=== PATIENT | male | born 1970 | race Caucasian/White ===

== ENCOUNTER → 2018-07-11 15:43 | Outpatient (CLI) | payer BC, SELFPAY | PROVIDERS: Visit Provider Emergency Medicine | DX: L02.31 Cutaneous abscess of buttock (principal) | CPT/HCPCS: 87070; 87077; 87186; 87205 ==

== ENCOUNTER → 2019-08-12 15:07 | Outpatient (CLI) | payer BC, SELFPAY ==
--- NOTE | 2019-08-12 15:11 | US_ITS ---
PROCEDURE: US TESTICULAR CLINICAL INDICATION: Palpable abnormality of the right testicle COMPARISON: No exams were available for comparison FINDINGS: The right testicle measures 3.5 x 2.3 x 2.3 cm. Blood flow is present with homogeneous echogenicity. No intra testicular mass is apparent. There is a complex appearing cystic lesion along the lateral and superior aspect of the right testicle which measures 3.6 by 2.3 cm. This lesion is mostly cystic but does contain some internal septations with some thickening of the septations anteriorly. This may represent a complex epididymal cyst/spermatocele Left testicle is 3.2 x 2.5 x 1.8 cm and has an unremarkable appearance. IMPRESSION: 3.5 x 2.3 x 2.3 cm complex cystic lesion in the right hemiscrotum which may represent a complex epididymal cyst or spermatocele. Dictated by: Miguel Gaytan MD 08/13/2019 10:10 Electronically signed by Miguel Gaytan MD in [place] 08/13/2019 10:10
== END ==
PROVIDERS: PCP Emergency Medicine; Visit Provider Emergency Medicine
DX: N50.89 Other specified disorders of the male genital organs (principal)
CPT/HCPCS: 76870

== ENCOUNTER 2020-01-11 20:47 | Emergency (ER) | payer BC, SELFPAY ==
[2020-01-11 20:57] VITALS: BP 141/83; PULSE 92; RESP 18; TEMP 36.6; O2SAT 99; BMI 32.6
--- NOTE | 2020-01-11 21:10 | HMH.EDUTC ---
[facility] [place] Disposition Clinical Impression: Encounter for laboratory testing for COVID-19 virus Disposition: Home, Self-Care Condition on Discharge: Good Instructions: Preventing the Spread of Coronavirus Discharge Instructions Additional Instructions: Go home and self Quarantine as directed on handout due to known exposure and member of household positive for COVID19 *You may call back to [facility] on Monday to see if your COVID19 test is back and results *Follow up with Family Doctor if no improvement or any worsening of symptoms, make sure that you call office before you go and let them know that you have been tested and awaiting results *Return if needed Straight to ER if any life threatening symptoms No work Do not be out in public you must stay home and away from the public Further instructions per handout that you was given in [facility] Referrals: Armando Polanco MD [Primary Care Provider] - As needed Forms: Work/School Release Time of Disposition: 21:19 Medical Decision Making - Dex Inquiry Pt receiving controlled substance: No Dex was queried for this patient: No Vital Signs: 01/11/20 20:57 Temperature 97.8 F Temperature Source Oral Pulse Rate [Right Brachial] 92 H Respiratory Rate 18 Blood Pressure [Right Arm] 141/83 H Blood Pressure Mean [Right Arm] 102 Blood Pressure Source [Right Arm] Automatic Cuff Blood Pressure Position [Right Arm] Sitting 02 Sat by Pulse Oximetry 99 Oxygen Delivery Method Room Air Orders (Tests/Meds): ORDERS Category Date Time Status SARS-CoV-2, [place] ([place]) Stat Lab 01/11/20 20:51 Ordered [facility] [place] HPI - General Stated complaint: WANTS covid tESTING Time Seen by Provider: 01/11/20 21:10 Mode of Arrival: Ambulatory Source of Information: Patient Limitations: No Limitations Description of Symptoms (Recalled from Triage Doc. by RN): PATIENT REQUESTING COVID-19 TEST. HE LIVES WITH HIS [id number] WHO RECENTLY TESTED POSITIVE. PATIENT DENIES HAVING ANY SYMPTOMS HEENT Symptoms (Recalled from RN notes): No Resp Symptoms (Recalled from RN notes): No Skin Symptoms (Recalled from RN notes): No MS Symptoms (Recalled from RN notes): No Functional Status (Recalled from RN notes): WNL - History of Present Illness Provider Complaint: Patient states that he lives with his brother in law who recently returned from [place] and his boss was feeling bad and tested for COVID19 and was positive States that brother in law came and got tested but wasnt having any symptoms and found out today that he tested positive for COVID19 and he lives in the house with the positive patient State that he also hasnt been having any symptoms but 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 - Related Data Home Medications Medication Instructions Recorded Confirmed No Known Home Medications 01/11/20 01/11/20 Allergies Allergy/AdvReac Type Severity Reaction Status Date / Time No Known Allergies Allergy Verified 08/12/19 14:20 - Worker's Comp Is this a Worker's Comp case?: No [facility] History - Hepatitis A Screen Drug use history?: No High risk sexual behaviors?: No History of sexually transmitted infection?: No Currently employed?: No Childcare worker?: No Do you have indoor plumbing?: Yes Do you have electricity?: Yes Attestation statement:: This patient has been screened for Hepatitis A risk factors. I have reviewed the patient's past medical history: Yes Medical History: Denies:: Diabetes Mellitus Type 2 Other Medical History: Reports: Hypothyroidism, Other Laterality Cases: Bilateral: Tonsillectomy Other Surgeries: Yes: EGD Amputation: No Fractures: No Comment: sutured stomach to diaphragm - Social History Smoking Status: Current every day smoker Tobacco Type: cigarettes # Packs/Day (cigarettes): 1 Alcohol Intake: never Substance Use Type: denies use Occupational Status: other Family Hx:: Diabetes, Coronary Artery Disease, Hyper
[2020-01-11 21:25] VITALS: BP 141/83; PULSE 92; RESP 18; TEMP 36.6; O2SAT 99
[2020-01-14 09:40] LABS: Covid-19 Nasal PCR Sendout UK NOT DETECTED
== END 2020-01-11 21:26 | disposition home or self-care (01) ==
PROVIDERS: Emergency Provider Nurse Practitioner; PCP Emergency Medicine
DX: Z20.828 Contact with and (suspected) exposure to other viral communicable diseases (principal); F17.210 Nicotine dependence, cigarettes, uncomplicated
CPT/HCPCS: 99201; U0003

== ENCOUNTER 2020-01-17 18:19 | Emergency (ER) | payer BC, SELFPAY ==
[2020-01-17 18:31] VITALS: BP 140/95; PULSE 120; RESP 20; TEMP 36.8; O2SAT 99; BMI 32.0
--- NOTE | 2020-01-17 18:45 | HMH.EDUTC ---
[facility] [place] Disposition Clinical Impression: Shingles Qualifiers: Herpes zoster complications: without complications Qualified Code(s): B02.9 - Zoster without complications Disposition: Home, Self-Care Condition on Discharge: Good Instructions: Shingles, DI for Shingles Additional Instructions: Take the medication as prescribed. Follow up with your regular doctor. (Dr. Polanco) GO TO THE ER FOR ANY WORSENING SYMPTOMS OR CONCERNS Prescriptions: Acyclovir [Acyclovir 800mg tab] 800 mg PO 5XDAY 7 Days #35 tab Transmission Status: Received by [id number] methylPREDNISolone [Medrol] 4 mg PO DIRECTED 6 Days #21 tab.ds.pk Transmission Status: Received by [id number] Referrals: Armando Polanco MD [Primary Care Provider] - Forms: Work/School Release Time of Disposition: 18:58 Medical Decision Making - Medical Records Medical records reviewed: No: I reviewed the patient's medical records. - Dex Inquiry Pt receiving controlled substance: No Vital Signs: 01/17/20 18:31 01/17/20 19:08 Temperature 98.2 F 98.2 F Temperature Source Oral Pulse Rate 120 H Pulse Rate [Right Brachial] 120 H Respiratory Rate 20 20 Blood Pressure 140/95 H Blood Pressure [Right Arm] 140/95 H Blood Pressure Mean [Right Arm] 110 Blood Pressure Source [Right Arm] Automatic Cuff Blood Pressure Position [Right Arm] Sitting 02 Sat by Pulse Oximetry 99 Oxygen Delivery Method Room Air Orders (Tests/Meds): ED MEDICATIONS Discontinued Medications Generic Name Dose Route Start Last Admin Trade Name Freq PRN Reason Stop Dose Admin Ibuprofen 800 mg 01/17/20 18:58 01/17/20 19:05 Motrin 400mg Tablet PO 01/17/20 18:59 800 mg ONCE ONE Administration Methylprednisolone Sodium Succinate 125 mg 01/17/20 18:52 01/17/20 19:06 Solu-Medrol 125mg/2ml Vial IM 01/17/20 18:53 125 mg ONCE ONE Administration [facility] [place] HPI - General Stated complaint: Rash on back Time Seen by Provider: 01/17/20 18:40 Mode of Arrival: Ambulatory Source of Information: Patient Limitations: No Limitations Description of Symptoms (Recalled from Triage Doc. by RN): PATIENT C/O RASH TO RIGHT SIDE OF BACK AND RIGHT SIDE OF ABDOMEN SINCE APPROX MONDAY OR MONDAY. HE STATES THE RASH DOES NOT ITCH, BUT IS SORE. ALSO C/O PAIN UNDER RIGHT ARM/AXILLA HEENT Symptoms (Recalled from RN notes): No Resp Symptoms (Recalled from RN notes): No Skin Symptoms (Recalled from RN notes): Yes MS Symptoms (Recalled from RN notes): No Functional Status (Recalled from RN notes): WNL - History of Present Illness Provider Complaint: He states that he first noticed the rash starting to break out 3 days ago. Now the rash is very painful. - Related Data Previous Rx's Medication Instructions Recorded Acyclovir [Acyclovir 800mg tab] 800 mg PO 5XDAY 7 Days #35 tab 01/17/20 methylPREDNISolone [Medrol] 4 mg PO DIRECTED 6 Days #21 01/17/20 tab.ds.pk Allergies Allergy/AdvReac Type Severity Reaction Status Date / Time No Known Allergies Allergy Verified 08/12/19 14:20 - Worker's Comp Is this a Worker's Comp case?: No [facility] History - Hepatitis A Screen Drug use history?: No High risk sexual behaviors?: No History of sexually transmitted infection?: No Currently employed?: No Childcare worker?: No Do you have indoor plumbing?: Yes Do you have electricity?: Yes Attestation statement:: This patient has been screened for Hepatitis A risk factors. I have reviewed the patient's past medical history: Yes Medical History: Denies:: Diabetes Mellitus Type 2 Other Medical History: Reports: Hypothyroidism, Other Laterality Cases: Bilateral: Tonsillectomy Other Surgeries: Yes: EGD Amputation: No Fractures: No Comment: sutured stomach to diaphragm - Social History Smoking Status: Current every day smoker Tobacco Type: cigarettes # Packs/Day (cigarettes): 1 Alcohol Intake: never Substance Use Type: denies use
[2020-01-17 19:08] VITALS: BP 140/95; PULSE 120; RESP 20; TEMP 36.8; O2SAT 99
== END 2020-01-17 19:14 | disposition home or self-care (01) ==
PROVIDERS: Emergency Provider Nurse Practitioner Family; PCP Emergency Medicine
DX: B02.9 Zoster without complications (principal); E03.9 Hypothyroidism, unspecified; Z90.09 Acquired absence of other part of head and neck
CPT/HCPCS: 96372; 99201

== ENCOUNTER 2020-03-17 13:04 | Emergency (ER) | payer BC, SELFPAY ==
[2020-03-17 13:17] VITALS: BP 127/84; PULSE 105; RESP 19; TEMP 36.6; O2SAT 98; BMI 31.9
--- NOTE | 2020-03-17 13:39 | CA_ITS ---
APPROVED REPORT Right Lower Extremity Venous Study for DVT. Parallel Computing Software Engineer: LONDON ClayT Indications Lower Extremity Pain: Right Pain rt thigh x several days, nki Vein Imaging CFV (R): compressive, spontaneous, phasic, augmentation FEM (R): compressive, spontaneous, phasic, augmentation POP (R): compressive, spontaneous, phasic, augmentation PTV (R): Compressible GSV (R): Non-Compressible Peroneals (R):Compressible GAS (R): Compressible Findings Study suggests no evidence of DVT of the right lower extremity. A thrombus is seen in the GSV extending from the mid thigh to the mid calf. Conclusion Study suggests no evidence of DVT of the right lower extremity. A thrombus is seen in the GSV extending from the mid thigh to the mid calf Critical Notification Physician Notified Date: 03/17/2020 Time: 14:16 Physician Name: Helen Garcia Electronically signed by : Miguel Gaytan MD 03/17/2020 16:22:07
--- NOTE | 2020-03-17 13:41 | HMH.EDUTC ---
[facility] [place] Disposition Clinical Impression: Thrombus Disposition: Home, Self-Care Condition on Discharge: Good Instructions: Varicose Veins, DI for Varicose Veins, DI on Treatment of Varicose Veins of the Leg, Rivaroxaban Additional Instructions: Take medication as prescribed *Repeat Venous Doppler tomorrow 03/18/20 at 8:00am then Follow up in Cardiology Clinic here at [facility] 9:30am 03/18/20 Further treatment per Cardiology Clinic and your Family Doctor Make sure that if you start having any shortness of breath, chest pain, uncontrolled bleeding etc go straight to the ER immediately Take Xarelto as prescribed 15mg twice daily for 3 weeks Prescriptions: Rivaroxaban [Xarelto 15mg tablet] 15 mg PO BID 21 Days #42 tab Transmission Status: Received by [id number] Referrals: Armando Polanco MD [Primary Care Provider] - As needed Daysi Degroot APRN [Nurse Practitioner] - Sharon Escalera APRN [Nurse Practitioner] - 03/18/20 9:30 am Forms: Work/School Release Time of Disposition: 15:27 Medical Decision Making - Dex Inquiry Pt receiving controlled substance: No Dex was queried for this patient: No Vital Signs: 03/17/20 13:17 03/17/20 15:29 Temperature 97.8 F 97.8 F Temperature Source Oral Pulse Rate 105 H Pulse Rate [Right Brachial] 105 H Respiratory Rate 19 19 Blood Pressure 127/84 Blood Pressure [Right Arm] 127/84 Blood Pressure Mean [Right Arm] 98 Blood Pressure Source [Right Arm] Automatic Cuff Blood Pressure Position [Right Arm] Sitting 02 Sat by Pulse Oximetry 98 Oxygen Delivery Method Room Air Orders (Tests/Meds): ED MEDICATIONS Discontinued Medications Generic Name Dose Route Start Last Admin Trade Name Freq PRN Reason Stop Dose Admin Rivaroxaban 15 mg 03/17/20 14:46 03/17/20 14:56 Xarelto 15mg Tablet PO 03/17/20 14:47 15 mg ONCE ONE Administration - US Data US Images: Lower Extremity ED US Reviewed: Yes: I have reviewed the patient's US results Findings Narrative: Study suggests no evidence of DVT of the right lower extremity. A thrombus is seen in the GSV extending from the mid thigh to the mid calf - Physician Consults Physician Consulted: Loi Larson Time: 14:20 Reason -: Cardiology Eval/Care Comment/Response: Spoke with Loi Larson from the Cardiology Clinic and discussed findings on Venous Doppler of thrombus in GSV extending from mid thigh to mid calf area and Loi NICHOLSON spoke with Dr Cornell and discussed with patient about being admitted or could be sent home on outpatient tx of Xarelto. Discussed with patient and at this time patient not wanting to be admitted and wanting to do outpatient tx, recommended starting patient on Xarelto 15mg BID for 3 weeks, schedule repeat Venous Doppler in the am on 03/18/20 then follow up immediately in the Cardiology Clinic after doppler and give 1st dose of Xarelto in the office and educate patient that if he has any complications, chest pain or SOA go straight to ER and Patient agreed and verbalized understanding of instructions [facility] [place] HPI - General Stated complaint: Vein in right leg pain Time Seen by Provider: 03/17/20 13:41 Mode of Arrival: Ambulatory Limitations: No Limitations Description of Symptoms (Recalled from Triage Doc. by RN): PATIENT REPORTS HE WAS MOVING LAST MONDAY WHEN HE HIT HIS RIGHT LEG AND STATES IT FELT LIKE A VEIN POPPED IN HIS THIGH HEENT Symptoms (Recalled from RN notes): No Resp Symptoms (Recalled from RN notes): No Skin Symptoms (Recalled from RN notes): No MS Symptoms (Recalled from RN notes): Yes Functional Status (Recalled from RN notes): WNL - History of Present Illness Provider Complaint: Patient states that he has a history of varicose veins State that he did some moving last week and did alot heavy lifting and walking and bumped his right leg several times on the trailor States that Monday he noticed that he had a lumpy area in a vein in his right upper leg that went from h
[2020-03-17 15:29] VITALS: BP 127/84; PULSE 105; RESP 19; TEMP 36.6; O2SAT 98
== END 2020-03-17 15:38 | disposition home or self-care (01) ==
LOC: UTC 13:09
PROVIDERS: Emergency Provider Nurse Practitioner; PCP Emergency Medicine
DX: I82.4Y1 Acute embolism and thrombosis of unspecified deep veins of right proximal lower extremity (principal); E03.9 Hypothyroidism, unspecified; F17.210 Nicotine dependence, cigarettes, uncomplicated
CPT/HCPCS: 93971; 99201

== ENCOUNTER → 2020-03-18 08:00 | Outpatient (CLI) | payer BC, SELFPAY ==
--- NOTE | 2020-03-18 08:03 | CA_ITS ---
APPROVED REPORT Right Lower Extremity Venous Study for DVT. Promotions Intern: LONDON ClayT Indications Lower Extremity Pain: Right f/t svt of the gsv Medications PT STARTED XARELTO YESTERDAY Vein Imaging CFV (R): compressive, spontaneous, phasic, augmentation FEM (R): compressive, spontaneous, phasic, augmentation POP (R): compressive, spontaneous, phasic, augmentation PTV (R): Compressible GSV (R): Non-Compressible, Thrombus Peroneals (R):Compressible GAS (R): Compressible Findings Study suggests no evidence of DVT of the right lower extremity. Thrombus seen in the right GSV of the thigh extending into the proximal calf. Conclusion Study suggests no evidence of DVT of the right lower extremity. Thrombus seen in the right GSV of the thigh extending into the proximal calf. Electronically signed by : Miguel Gaytan MD 03/19/2020 17:33:13
== END ==
PROVIDERS: PCP Emergency Medicine; Visit Provider Nurse Practitioner
DX: I82.90 Acute embolism and thrombosis of unspecified vein (principal); I82.409 Acute embolism and thrombosis of unspecified deep veins of unspecified lower extremity
CPT/HCPCS: 93971

== ENCOUNTER → 2020-03-18 11:56 | Outpatient (CLI) | payer BC, SELFPAY ==
[2020-03-18 12:45] LABS: Basophils % 0.4 % (0.1-2.0); Eosinophils # 0.2 K/mm3 (0.0-0.4); Eosinophils % 2.1 % (0.1-12.0); Hemoglobin 16.2 g/dL (14.1-18.0); Lymphocytes # 1.9 K/mm3 (0.7-4.5); Lymphocytes % 23.6 % (10-50); Mean Corpuscular HGB Conc 32.4 g/dL (31.8-35.4); Mean Corpuscular Hemoglobin 28.5 pg (27.0-31.2); Mean Corpuscular Volume 87.8 fl (80-94); Mean Platelet Volume 8.7 fl (7.4-10.4); Monocytes # 0.3 K/mm3 (0.1-1.0); Monocytes % 3.8 % (1.7-9.3); Neutrophils # 5.7 K/mm3 (1.8-7.8); Neutrophils % 70.1 % (37.0-80.0); Platelet Count 207 K/mm3 (142-424); Red Cell Distribution Width 14.4 % (11.5-17.5); White Blood Count 8.2 K/mm3 (4.8-10.8)
[2020-03-18 13:21] LABS: Alanine Aminotransferase 42 U/L (12-78); Albumin Level 3.7 g/dl (3.5-5.0); Alkaline Phosphatase 90 U/L (38-126); Anion Gap 12.6 mEq/L (5-15); Aspartate Amino Transferase 30 U/L (17-59); Bilirubin,Direct 0.2 mg/dl (0.0-0.4); Bilirubin,Indirect 0.2 mg/dL (0.0-0.9); Bilirubin,Total 0.4 mg/dl (0.2-1.3); Bilirubin,Unconjugated 0.2 mg/dL (0.0-1.1); Blood Urea Nitrogen 19 mg/dl (9-20); Calcium 9.5 mg/dl (8.4-10.2); Carbon Dioxide 32 mmol/L (22.0-30.0); Chloride 99 mmol/L (98-107); Chol/HDL Ratio 5.5 (1-3.5); Cholesterol 224 mg/dl (140-200); Estimated Glomerular Filt Rate 64 ml/min (>60); GFR (African American) 78 ML/MIN (>60); Glucose 239 mg/dl (74-100); HDL Cholesterol 41 mg/dl (40-60); Potassium 4.6 mmoL/L (3.5-5.1); Sodium 139 mmol/L (136-145); Total Protein,Serum 6.5 g/dl (6.3-8.2); Triglycerides 253 mg/dl (30-150); VLDL Cholesterol 51 mg/dL (0-40)
[2020-03-18 13:34] LABS: Direct LDL Cholesterol 145.46 mg/dL (100-129)
[2020-03-18 13:53] LABS: Thyroid Stimulating Hormone 5.93 uIU/mL (0.465-4.68)
== END ==
PROVIDERS: Visit Provider Urology
DX: I82.409 Acute embolism and thrombosis of unspecified deep veins of unspecified lower extremity (principal); I82.811 Embolism and thrombosis of superficial veins of right lower extremity; J98.6 Disorders of diaphragm; R06.00 Dyspnea, unspecified; R07.9 Chest pain, unspecified; R42 Dizziness and giddiness
CPT/HCPCS: 36415; 80048; 80061; 80076; 84439; 84443; 85025

== ENCOUNTER → 2020-03-24 08:29 | Outpatient (CLI) | payer BC, SELFPAY ==
--- NOTE | 2020-03-24 08:29 | CA_ITS ---
APPROVED REPORT Bilateral Lower Extremity Venous Study for DVT. Excelsior Machine Operator: CECILIA Indications Lower Extremity Pain: Right thrombus greater saphenous vein right leg follow up Vein Imaging CFV (R): compressive, spontaneous, phasic, augmentation SFJ (R): compressive, spontaneous, phasic, augmentation FEM (R): compressive, spontaneous, phasic, augmentation POP (R): compressive, spontaneous, phasic, augmentation DFV (R): Compressible PTV (R): compressive, spontaneous, phasic, augmentation GSV (R): Non-Compressible Peroneals (R):compressive, spontaneous, phasic, augmentation GAS (R): Compressible Findings SVT RIGHT GREATER SAPHANEOUS VEIN FOLLOW UP STUDY NO EVIDENCE OF DVT RIGHT LOWER EXTRMITY Conclusion SVT RIGHT GREATER SAPHANEOUS VEIN FOLLOW UP STUDY NO EVIDENCE OF DVT RIGHT LOWER EXTRMITY Electronically signed by : Miguel Gaytan MD 03/24/2020 15:53:56
--- NOTE | 2020-03-24 08:29 | CA_ITS ---
APPROVED REPORT EXAM: Comprehensive 2D, Doppler, and color-flow Echocardiogram Education Technician: Ceci Nicolas CRT Ht: 5 ft 7 in Wt: 210lbs BSA: 2.07 BP: 116/86 mmHg Indications: SOA,H/O SVT,SMOKER,COBB,OBESITY, H/O PARALYSIS OF DIAPHRAGM TDS SECONDARY TO ABOVE 2D Dimensions LVOT 2.23 cm (M/F) 1.5-2.5 M-Mode Dimensions RVDd 2.46 cm (0.9-2.6) LVDd 3.89 cm (3.5-5.7) LVDs 2.81 cm (3.5-5.7) IVSd 1.90 cm (0.6-1.1) PWd 1.05 cm (0.6-1.1) EF (Teich) 54.50% FS 27.80% EDV (Teich) 65.50 mL ESV (Teich) 29.80 mL LV Diastology E/A Ratio 0.48 Mitral Valve MV A Velocity 98.00 (40-130 cm/s) Left Ventricle Technically difficult study because of the patient fact in poor acoustic windows. Left atrium is mildly enlarged, left ventricle is normal size, mild concentric left ventricular hypertrophy, visually estimated ejection fraction 50%, there appears to be mild hypokinesis involving the distal septum and apical wall. Doppler evidence of impaired LV relaxation seen, repeat study with Definity contrast is recommended. Tissue Doppler is inadequate Right Ventricle Right atrium and right ventricle are normal size and contractility. Aortic Valve Aortic valve is thickened and calcified leaflet chordae display good mobility, there is no aortic stenosis or aortic insufficiency. Mitral Valve Mitral valve is minimally thickened, there is mild mitral regurgitation. Tricuspid Valve Tricuspid valve is grossly normal, there is mild tricuspid regurgitation, tricuspid regurgitation jet velocity is inadequate for calculation of the right ventricular systolic pressure. Pulmonic Valve Pulmonic valve is poorly visualized. Great Vessels Aortic root is normal size. Pericardium No significant pericardial effusion noted. Conclusion 1. Technically difficult study because of the patient factors and poor acoustic windows, repeat study with Definity contrast is recommended. 2. Mildly enlarged left atrium, normal left ventricular size, mild concentric left ventricular hypertrophy, visually estimated ejection fraction 50% with possible segmental wall motion abnormality described above, Doppler evidence of impaired LV relaxation seen. Tissue Doppler is suboptimal. 3. Mild mitral and tricuspid regurgitation. 4. No significant pericardial effusion noted. Electronically signed by : Sy Crenshaw, 03/24/2020 17:56:14
== END ==
PROVIDERS: PCP Emergency Medicine; Visit Provider Urology
DX: R07.9 Chest pain, unspecified (principal); R42 Dizziness and giddiness; R06.00 Dyspnea, unspecified; I82.811 Embolism and thrombosis of superficial veins of right lower extremity; J98.6 Disorders of diaphragm
CPT/HCPCS: 93306; 93971

== ENCOUNTER → 2020-04-03 06:27 | Outpatient (CLI) | payer BC, SELFPAY ==
--- NOTE | 2020-04-03 06:31 | NM_ITS ---
APPROVED REPORT Exam: Nuclear Stress Test Indication: short of breath..fatigue Patient Location: Outpatient Stress Tech: Shelly Harpernkson NM Tech:TEE Pillai RT(R)(N) Ht: 5 ft 8 in Wt: 210 lbs HR: 91 bpm BP: 117/83 mmHg BSA: 2.09 m2 BMI: 31.9 History: short of breath..fatigue Procedure: Patient received a 0.4 mg of intravenous Lexiscan, resting heart rate 91 bpm, resting blood pressure 117/83 mmHg, with Lexiscan maximum heart rate achived was 108 bpm which is Less than 85 % of the maximum predicted heart rate and blood pressure was 116/83 mmHg. With Lexiscan, patient denied any complaint of chest pain. Electrocardiogram Resting electrocardiogram showed sinus rhythm, with Lexiscan there is less than 1.[address] segment depression noted from the baseline EKG. The EKG portion of the Lexiscan is nondiagnostic. Cardiac Stress and Resting SPECT Images: Cardiac Stress and Resting SPECT images were obtained using technetium 99m Myoview 32.2 mCi stress and 10.89 mCi at rest. Gated SPECT for the analysis of segmental wall motion and calculation of the ejection fraction also done. Cardiac stress and resting SPECT images show decreased tracer activity in the posterolateral wall which improves on the resting images raising the concerns for presence of reversible ischemia. Computer derived ejection fraction is 63% with no regional wall motion abnormality, right ventricle is normal size and contractility. Conclusion: 1. The EKG portion of the Lexiscan Myoview is nondiagnostic. 2. Scintigraphic evidence of reversible ischemia involving the posterolateral wall, computer derived ejection fraction is 63% with no regional wall motion abnormality, right ventricle is normal size and contractility. 3. Abnormal Lexiscan Myoview study. Electronically signed by : Sy Crenshaw, 04/03/2020 11:25:47
--- NOTE | 2020-04-03 06:31 | CA_ITS ---
APPROVED REPORT Exam: Pharmacologic Technologist: Anum Samaniego, Ht: 5 ft 7 in Wt: 214 lbs BSA: 2.08 m2 HR: 91 bpm BP: 119/74 mmHg Rhythm: SINUS RHYTHM (ABNORMAL EKG) Medical History Medical History: HTN, Hyperlipidemia Medications: Levothyroxine,,,,, Metoprolol,,,,, RoSUVASTATIN,,,,, SilDENAFIL,,,,, RIvaROXABAN,,,,, Cardiac Risk Factors: HTN, Hyperlipidemia, FHX of CAD Stress Test Details Test: LEXISCAN HR Resting HR: 94 bpm Max Heart Rate (APMHR): 170 bpm Max HR Achieved: 116 bpm Target HR (85% APMHR): 144 bpm % of APMHR: 68 Recovery HR: 108 bpm BP Resting BP: 117.0/83.0 mmHg Max BP: 136.0/79.0 mmHg Recovery BP: 116.0/83.0 mmHg ECG Resting ECG: SINUS RHYTHM(ABNORMAL ECG) Clinical Exercise duration: 04:00 min Highest Stage Achieved: Exercise capacity: 1.0 METs Stress ECG Conclusion LEXISCAN MYOVIEW COMPLETED. PATIENT C/O SOA DURING PEAK INFUSION. RESOLVED IN RECOVERY. OCCASIONAL PVC. LESS THAN 1.[address] DEPRESSION. IMAGES TO FOLLOW Test Summary RECOVERY 04:00 . . 106 . 125/ 89 . . REST 02:12 . . 94 . 117/ 83 . . Stage 1 . . . . . . . Myoview Injected Stage 1 01:00 . . 114 . . . . Stage 2 01:00 . . 115 . 119/ 74 . . Stage 3 01:00 . . 114 . 125/ 77 . . Stage 4 01:00 . . 111 . 136/ 79 . Stop exercise at 04:00 RECOVERY 01:00 . . 110 . 116/ 83 . . RECOVERY 02:00 . . 108 . 116/ 83 . . RECOVERY 03:00 . . 107 . 128/ 78 . . RECOVERY 04:00 . . 106 . 125/ 89 . . RECOVERY 04:02 . . 106 . 125/ 89 . . Electronically signed by : Sy Crenshaw, 04/03/2020 11:16:42
--- NOTE | 2020-04-03 09:37 | HMH.ITSHM ---
Current Home Medications as stated by this patient Chepe De Jesus or statement services representative. []crwstor synthroid metoprolol riraroxabaqn sildenafil
== END ==
PROVIDERS: PCP Emergency Medicine; Visit Provider Urology
DX: R93.1 Abnormal findings on diagnostic imaging of heart and coronary circulation (principal)
CPT/HCPCS: 78452; 93017; A9502; J2785

== ENCOUNTER 2020-04-16 09:01 | Day surgery (SDC) | payer BC, SELFPAY ==
[2020-04-16] VITALS (14 sets, daily range): BP systolic 94–154; BP diastolic 57–99; PULSE 68–91; RESP 16; TEMP 36.8; O2SAT 88–99; BMI 34.0
--- NOTE | 2020-04-16 08:14 | IR_ITS ---
APPROVED REPORT Patient Location: Outpatient PROCEDURES Left heart catheterization Left ventriculogram Selective coronary angiogram INDICATION Angina pectoris, Abnormal Myoview Informed consent was obtained prior to the procedure. COMPLICATIONS none Estimated Blood Loss: less than 10 mls TECHNIQUE One percent lidocaine used to anesthetize the right anterior aspect of the wrist. The right radial artery was accessed via the Seldinger technique. A 6 Luxembourger sheath was placed in the right radial artery. 2.5 mg of verapamil, 800 mcg of nitroglycerin, 1mg Lidocaine and 5000 U Heparin were given through the arterial sheath. The trap catheter and a 6 Luxembourger JL 3 catheter were used to perform left heart catheterization, left ventriculogram and selective coronary angiogram. At the end of the procedure the sheath was removed good hemostasis was achieved using Traclet band, patient was transferred to the postop holding area in stable condition. ANGIOGRAPHIC RESULTS The left main artery Normal The left anterior descending artery Normal The circumflex artery Nondominant normal The right coronary artery Dominant with an anterior takeoff with no evidence of atherosclerotic plaque however there was NIDIA II flow The DENSON ventriculogram reveals Normal 65% The left ventricular end-diastolic pressure 10 mmHg IMPRESSION Normal coronary arteries with the right coronary artery having an anterior takeoff and slow NIDIA II flow consistent with endothelial dysfunction Normal ejection fraction Normal left ventricular end-diastolic pressure PLAN 1. Medical management of endothelial dysfunction and associated risk factors Electronically signed by : Kirby Cornell, 04/16/2020 12:01:31
[2020-04-16 09:28] LABS: Basophils # 0.1 K/mm3 (0-0.2); Basophils % 0.9 % (0.1-2.0); Eosinophils # 0.2 K/mm3 (0.0-0.4); Eosinophils % 2.2 % (0.1-12.0); Hematocrit 48.8 % (42.0-52.0); Lymphocytes % 31.2 % (10-50); Mean Corpuscular Hemoglobin 29.4 pg (27.0-31.2); Mean Platelet Volume 8.4 fl (7.4-10.4); Monocytes # 0.6 K/mm3 (0.1-1.0); Monocytes % 6.3 % (1.7-9.3); Neutrophils # 5.6 K/mm3 (1.8-7.8); Neutrophils % 59.3 % (37.0-80.0); Platelet Count 223 K/mm3 (142-424); Red Blood Count 5.81 M/mm3 (4.60-6.20); Red Cell Distribution Width 13.9 % (11.5-17.5); White Blood Count 9.5 K/mm3 (4.8-10.8)
[2020-04-16 09:33] LABS: Chloride 107 mmol/L (98-107); Potassium 4.5 mmoL/L (3.5-5.1); Sodium 140 mmol/L (136-145)
[2020-04-16 09:36] LABS: Anion Gap 12.5 mEq/L (5-15); Blood Urea Nitrogen 19 mg/dl (9-20); Calcium 9.2 mg/dl (8.4-10.2); Carbon Dioxide 25 mmol/L (22.0-30.0); Creatinine Clearance Estimated 103 mL/min (50-200); Estimated Glomerular Filt Rate 64 ml/min (>60); GFR (African American) 78 ML/MIN (>60); Glucose 126 mg/dl (74-100)
[2020-04-16 09:56] LABS: Coronavirus 19 IgG Antibody Positive (Negative); Coronavirus 19 IgM Antibody Positive (Negative)
== END 2020-04-16 15:00 | disposition home or self-care (01) ==
LOC: CATHLAB 09:01
PROVIDERS: PCP Emergency Medicine; Visit Provider Internal Medicine
DX: I82.402 Acute embolism and thrombosis of unspecified deep veins of left lower extremity (principal); E78.5 Hyperlipidemia, unspecified; I10 Essential (primary) hypertension; I82.811 Embolism and thrombosis of superficial veins of right lower extremity; R93.1 Abnormal findings on diagnostic imaging of heart and coronary circulation; R94.31 Abnormal electrocardiogram [ECG] [EKG]; R94.39 Abnormal result of other cardiovascular function study; I25.118 Atherosclerotic heart disease of native coronary artery with other forms of angina pectoris; Z79.01 Long term (current) use of anticoagulants; Z79.899 Other long term (current) drug therapy; E03.9 Hypothyroidism, unspecified
CPT/HCPCS: 80048; 85025; 86328; 93458; 99152; C1725; C1769; J1644; Q9967; U0003

== ENCOUNTER → 2020-08-06 11:40 | Outpatient (CLI) | payer BC, SELFPAY ==
--- NOTE | 2020-08-06 11:44 | XR_ITS ---
PROCEDURE: XR FOOT WT BEARING RT 3V CLINICAL INDICATION: heel pain COMPARISON: No exams were available for comparison FINDINGS: No fracture or dislocation. No lytic or blastic change. There is normal mineralization. Mild pes cavum. There is prominence of the 1st intermetatarsal space. Other findings:None. IMPRESSION: Pes cavum with prominence of the 1st intermetatarsal space Dictated by: Miguel Gaytan MD 08/06/2020 15:35 Miguel Gaytan MD in [place] 08/06/2020 15:35
--- NOTE | 2020-08-06 11:44 | XR_ITS ---
PROCEDURE: XR FOOT WT BEARING LT 3V CLINICAL INDICATION: heel pain COMPARISON: No exams were available for comparison FINDINGS: No fracture or dislocation. No lytic or blastic change. There is normal mineralization. Mild pes cavum. Prominent os trigonum is noted. There is prominence of the space between the base of the 1st and 2nd metatarsals. Second metatarsal tarsal joint is preserved. Small extra ossicle noted at the dorsal aspect and proximal aspect of the navicular. Other findings:None. IMPRESSION: As above, no acute finding. Mild pes cavum with prominence the 1st intermetatarsal space Dictated by: Miguel Gaytan MD 08/06/2020 15:32 Miguel Gaytan MD in [place] 08/06/2020 15:32
== END ==
PROVIDERS: PCP Emergency Medicine; Visit Provider Podiatrist
DX: M79.672 Pain in left foot (principal); M79.671 Pain in right foot
CPT/HCPCS: 73630

== ENCOUNTER → 2020-08-14 17:20 | Outpatient (CLI) | payer BC, SELFPAY ==
[2020-08-14 17:46] LABS: Basophils # 0.1 K/mm3 (0-0.2); Basophils % 0.9 % (0.1-2.0); Eosinophils # 0.3 K/mm3 (0.0-0.4); Eosinophils % 2.1 % (0.1-12.0); Hematocrit 54.8 % (42.0-52.0); Lymphocytes # 4.3 K/mm3 (0.7-4.5); Lymphocytes % 31.9 % (10-50); Mean Corpuscular HGB Conc 33.2 g/dL (31.8-35.4); Mean Corpuscular Volume 84.3 fl (80-94); Monocytes % 7.6 % (1.7-9.3); Neutrophils # 7.7 K/mm3 (1.8-7.8); Neutrophils % 57.6 % (37.0-80.0); Platelet Count 169 K/mm3 (142-424); Red Cell Distribution Width 14.7 % (11.5-17.5); White Blood Count 13.3 K/mm3 (4.8-10.8)
[2020-08-14 17:50] LABS: Hemoglobin 18.2 g/dL (14.1-18.0)
[2020-08-14 18:03] LABS: Alanine Aminotransferase 53 U/L (12-78); Albumin Level 4.1 g/dl (3.5-5.0); Albumin/Globulin Ratio 1.4 (1.1-1.8); Alkaline Phosphatase 73 U/L (38-126); Anion Gap 12.9 mEq/L (5-15); Aspartate Amino Transferase 36 U/L (17-59); Bilirubin,Total 0.5 mg/dl (0.2-1.3); Blood Urea Nitrogen 29 mg/dl (9-20); Calcium 9.6 mg/dl (8.4-10.2); Carbon Dioxide 24 mmol/L (22.0-30.0); Chloride 105 mmol/L (98-107); Chol/HDL Ratio 3.6 (1-3.5); Cholesterol 185 mg/dl (140-200); Estimated Glomerular Filt Rate 71 ml/min (>60); GFR (African American) 85 ML/MIN (>60); Globulin 2.9 g/dL (1.3-3.2); Glucose 103 mg/dl (74-100); HDL Cholesterol 51 mg/dl (40-60); Potassium 4.9 mmoL/L (3.5-5.1); Sodium 137 mmol/L (136-145); Triglycerides 248 mg/dl (30-150); VLDL Cholesterol 50 mg/dL (0-40)
[2020-08-14 18:13] LABS: Direct LDL Cholesterol 104.29 mg/dL (100-129)
[2020-08-14 18:20] LABS: 25-OH Vitamin D, Total 31.7 ng/mL (30-100); T4 (Thyroxine) 7.4 ug/dl (5.53-11.0)
[2020-08-14 18:32] LABS: Hemoglobin A1C 6.3 % (4.0-6.0)
[2020-08-14 18:33] LABS: Thyroid Stimulating Hormone 7.21 uIU/mL (0.465-4.68)
[2020-08-16 09:35] LABS: PSA, Free 0.11 ng/mL; Prostate Specific Ag 0.4 ng/mL (0.0-4.0)
== END ==
PROVIDERS: Visit Provider Emergency Medicine
DX: I10 Essential (primary) hypertension (principal); E78.5 Hyperlipidemia, unspecified; R73.09 Other abnormal glucose; E03.9 Hypothyroidism, unspecified
CPT/HCPCS: 80053; 80061; 82306; 83036; 84153; 84154; 84436; 84443; 85025

== ENCOUNTER 2020-09-10 12:17 | Emergency (ER) | payer BC, SELFPAY ==
[2020-09-10 12:20] VITALS: BP 125/62; PULSE 118; RESP 18; TEMP 36.8; O2SAT 98; BMI 32.8
--- NOTE | 2020-09-10 13:02 | HMH.EDUTC ---
[facility] Disposition Clinical Impression: Discoloration of skin of finger Disposition: Home, Self-Care Condition on Discharge: Good Instructions: Ambulatory Cardiac Monitoring, DI for Ambulatory Cardiac Monitoring, Rivaroxaban, Get Moving to Prevent Blood Clots Additional Instructions: Instructions as was given to you per Loi Larson in the [facility] , holter monitor, Xarelto as prescribed and follow up as scheduled Return if needed Straight to ER if any worsening of symptoms or loss of feeling or worsening of discoloration Follow up with your Family Doctor Follow up in Cardiology as scheduled Prescriptions: Rivaroxaban [Xarelto 15mg tablet] 15 mg PO BID 21 Days #42 tab Transmission Status: Received by [id number] Referrals: Armando Polanco MD [Primary Care Provider] - Loi Larson PA [Physician Consulting Marine Engineer] - 09/24/20 1:30 pm Time of Disposition: 13:24 Medical Decision Making - Edx Inquiry Pt receiving controlled substance: No Dex was queried for this patient: No Vital Signs: 09/10/20 12:20 09/10/20 13:18 Temperature 98.3 F 98.3 F Temperature Source Oral Pulse Rate 118 H Pulse Rate [Right Brachial] 118 H Respiratory Rate 18 18 Blood Pressure 125/62 Blood Pressure [Right Arm] 125/62 Blood Pressure Mean [Right Arm] 83 Blood Pressure Source [Right Arm] Automatic Cuff Blood Pressure Position [Right Arm] Sitting 02 Sat by Pulse Oximetry 98 Oxygen Delivery Method Room Air Medical Decision Narrative: Discussed with patient and recommended transfer to the ED for further work up and evaluation and patient refused transfer and wanted to stay in the [facility] discussed with patient and informed him that testing that is not available in the [facility] possibly could be done in the ED and still refused Spoke with Loi NICHOLSON with Cardiology Clinic and he came to [facility] and viewed little finger on right hand and performed examination checked pulses and movement along with color and temp. Patient has history of DVT that he was seen and treated for by Cardiology Clinic along with Heart Cath in May 2020, and Loi Larson recommended restarting patient on xarelto 15mg BID due to suspected blood clot in tip of finger, holter monitor for 48 hours and follow up in the Cardiology clinic in 2 weeks or follow up with his PCP or Cardiology Clinic immediately if no improvement or any worsening of symptoms Straight to ER if any life threatening symptoms and patient verbalized agreement [facility] HPI - General Stated complaint: right pinky finger injury Time Seen by Provider: 09/10/20 13:02 Mode of Arrival: Ambulatory Source of Information: Patient Limitations: No Limitations Description of Symptoms (Recalled from Triage Doc. by RN): PATIENT C/O PAIN AND NUMBNESS IN RIGHT PINKY FINGER X 1-1.5 WEEKS. FINGER IS BLUISH-PURPLE AT TIP AND COLD TO TOUCH. HAS RECENT HISTORY OF DVT AND HEART CATH. HEENT Symptoms (Recalled from RN notes): No Resp Symptoms (Recalled from RN notes): No Skin Symptoms (Recalled from RN notes): No MS Symptoms (Recalled from RN notes): Yes Functional Status (Recalled from RN notes): WNL - History of Present Illness Provider Complaint: Patient states that he has been having pain on and off in his right little finger for about a 1.5 weeks States that times he will wake up in the middle of the night with achy like feeling in finger and hand State that finger is cool to the touch and rest of fingers is warm States that he is able to move and bend it like normal but it is bluish purple in color and at times it is worse States that he had heart cath in Nov due to having some DVT and was on Xarelto but no longer taking it Denies injury - Related Data Home Medications Medication Instructions Recorded Confirmed meloxicam 7.5 mg tablet 7.5 mg PO ONCE PRN tab 08/14/20 Previous Rx's Medication Instructions Recorded metformin 500 mg tablet,extended 500 mg PO DAILY #90 tab 08/17/20 release 24 hr thyroid (pork) 30 mg tablet
[2020-09-10 13:18] VITALS: BP 125/62; PULSE 118; RESP 18; TEMP 36.8; O2SAT 98
== END 2020-09-10 13:25 | disposition home or self-care (01) ==
PROVIDERS: Emergency Provider Nurse Practitioner; PCP Emergency Medicine
DX: R20.0 Anesthesia of skin (principal); M79.644 Pain in right finger(s); Z86.718 Personal history of other venous thrombosis and embolism; E11.9 Type 2 diabetes mellitus without complications; I25.10 Atherosclerotic heart disease of native coronary artery without angina pectoris; E03.9 Hypothyroidism, unspecified; Z79.899 Other long term (current) drug therapy
CPT/HCPCS: 99202; G0463

== ENCOUNTER → 2020-09-10 13:44 | Outpatient (CLI) | payer BC, SELFPAY | PROVIDERS: PCP Emergency Medicine; Visit Provider Nurse Practitioner | DX: I25.10 Atherosclerotic heart disease of native coronary artery without angina pectoris (principal); L81.9 Disorder of pigmentation, unspecified | CPT/HCPCS: 93225; 93226 ==

== ENCOUNTER → 2020-09-21 13:54 | Outpatient (CLI) | payer BC, SELFPAY ==
--- NOTE | 2020-09-21 14:18 | CT_ITS ---
PROCEDURE: CT ANGIO CHEST CLINCIAL INDICATION: discoloration of 5th finger on right hand Pain COMPARISON: No exams were available for comparison TECHNIQUE: IV Contrast: 70ML Isovue 370 Axial images obtained with sagittal and coronal reformats. All CT scans at the facility use one or more dose reduction, viz: automated exposure control, ma/kV adjustment per patient size (including targeted exams where dose is matched to indication, i.e. head), or iterative reconstruction technique. FINDINGS: HEART AND MEDIASTINAL STRUCTURES: No evidence of aortic aneurysm. There is a small linear filling defect at the posterior aspect of the descending thoracic aorta image 24 series 3 suspicious for a small area of dissection. This is distal to the left subclavian artery. No evidence of pulmonary embolus. There is severe elevation of left hemidiaphragm with left basilar atelectasis. LUNGS AND PLEURAL SPACES: Left lower lobe atelectatic changes secondary to the elevated left hemidiaphragm. There may be some surgical clips in the left lung base. Please correlate with patient's history. The mediastinum is somewhat shifted toward the right secondary to the elevated hemidiaphragm. BONY STRUCTURES: Degenerative changes thoracic spine. ADDITIONAL FINDINGS: No other significant abnormalities. 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 Dictated by: Miguel Gaytan MD 09/22/2020 07:16 Miguel Gaytan MD in [place] 09/22/2020 07:16
[2020-09-21 14:24] LABS: Basophils # 0.1 K/mm3 (0-0.2); Basophils % 0.8 % (0.1-2.0); Eosinophils # 0.1 K/mm3 (0.0-0.4); Eosinophils % 1.5 % (0.1-12.0); Hematocrit 52.9 % (42.0-52.0); Hemoglobin 17.4 g/dL (14.1-18.0); Mean Corpuscular Volume 84.9 fl (80-94); Mean Platelet Volume 10.5 fl (7.4-10.4); Monocytes # 0.5 K/mm3 (0.1-1.0); Monocytes % 6.8 % (1.7-9.3); Neutrophils # 4.2 K/mm3 (1.8-7.8); Neutrophils % 61.9 % (37.0-80.0); Platelet Count 159 K/mm3 (142-424); Red Blood Count 6.23 M/mm3 (4.60-6.20); Red Cell Distribution Width 14.5 % (11.5-17.5); White Blood Count 6.9 K/mm3 (4.8-10.8)
[2020-09-21 14:29] LABS: Chloride 109 mmol/L (98-107); Potassium 4.4 mmoL/L (3.5-5.1); Sodium 141 mmol/L (136-145)
[2020-09-21 14:32] LABS: Anion Gap 10.4 mEq/L (5-15); Blood Urea Nitrogen 21 mg/dl (9-20); Calcium 9.4 mg/dl (8.4-10.2); Carbon Dioxide 26 mmol/L (22.0-30.0); Estimated Glomerular Filt Rate 64 ml/min (>60); GFR (African American) 77 ML/MIN (>60); Glucose 114 mg/dl (74-100)
--- NOTE | 2020-09-21 14:44 | CA_ITS ---
APPROVED REPORT EXAM: Comprehensive 2D, Doppler, and color-flow Echocardiogram Ring Striker: Vannessa Michel RVT Ht: 5 ft 8 in Wt: 214lbs BSA: 2.10 BP: 128/70 mmHg Indications: cp,discoloration 5th digit,dm,smoker,cad tds-paralazyed diaphragm lt,best images possible 2D Dimensions IVSd 1.17 cm M: 0.6-1.2 LVEF (Visual) 63.00 % PWd 0.96 cm M: 0.6 - 1.2 LA Volume 19.80 mL LVDd 3.96 cm M: 4.2 - 5.9 LA Volume Index 9.42 mL/m2 (M/F) 16-34 LVDs 2.63 cm M: 2.5 - 4.0 LVOT 1.72 cm (M/F) 1.5-2.5 M-Mode Dimensions LA Diam 3.45 cm (1.9-4.0) Ao Diam 3.40 cm (2.0-3.7) LV Diastology E Decel Time 210.00 (160-240 msec) E/A Ratio 0.8 MED E' 6.00 (< 7 cm/sec) E'/MED E' Ratio 11.93 (>14) LAT E' 6.30 (<10 cm/sec) E/LAT E' Ratio 11.37 (>14) Mitral Valve MV E Max Jay. 72.00 (40-130 cm/s) MV A Velocity 91.00 (40-130 cm/s) E/A Ratio 0.79 MV Decel. Time 210.00 (160-240 ms) MV PHT 62.00 ms Pulmonary Valve PV Peak Velocity 62.00 (50-150 cm/s) Left Ventricle Technically difficult study because of the patient fact in poor acoustic windows. Left atrium is mildly enlarged, left ventricle is normal size, mild concentric left ventricular hypertrophy, visually estimated ejection fraction approximately 50% with no obvious regional wall motion abnormality, grade 1 diastolic dysfunction seen without tissue Doppler evidence of raise left atrial pressure. Right Ventricle Right atrium and right ventricle are normal size and contractility. Aortic Valve Aortic valve is minimally thickened and fibrosed, there is no aortic stenosis or aortic insufficiency. Mitral Valve Mitral valve is grossly normal, there is mild mitral regurgitation. Tricuspid Valve Tricuspid valve grossly normal, there is trace tricuspid regurgitation, tricuspid regurgitation jet velocity is inadequate for calculation of the right ventricular systolic pressure. Pulmonic Valve Pulmonic valve is poorly visualized. Great Vessels Aortic root is normal size. Pericardium No significant pericardial effusion noted. Conclusion 1. Technically difficult study because of the patient fact in poor acoustic windows. Normal left ventricular size, mild concentric left ventricular hypertrophy, visually estimated ejection fraction 55% with no regional wall motion abnormality, grade 1 diastolic dysfunction seen without tissue Doppler evidence of raise left atrial pressure. 2. Mild mitral and trace tricuspid regurgitation. 3. No significant pericardial effusion noted. Electronically signed by : Sy Crenshaw, 09/21/2020 18:13:43
[2020-09-21 16:40] LABS: Fibrinogen 401 mg/dL (204-500); INR 1.01 (0.9-1.1); Prothrombin Time 11.9 seconds (9.4-11.8)
[2020-09-23 13:28] LABS: Homocyst(e)ine 17.8 umol/L (0.0-14.5)
[2020-09-24 05:22] LABS: Anti-Cardio Antibody IgM 12 MPL U/mL (0-12); Anti-Cardiolipin Antibody IgG <9 GPL U/mL (0-14); Anticardiolipin Ab,IgA,Qn <9 APL U/mL (0-11)
[2020-09-24 05:23] LABS: Anti-Thrombin III Antigen 89 % (72-124); Antithrombin Activity 128 % (75-135); Protein S, Free 96 % (57-157); Protein S, Total 85 % (60-150)
[2020-09-24 05:24] LABS: Protein S-Functional 117 % (63-140)
[2020-09-30 16:39] LABS: Protein C Antigen 125 % (60-150)
[2020-10-19 18:31] LABS: APTT 32.9 sec (.); Anti-Cardiolipin Antibody IgG <10 GPL (.); Anti-Cardiolipin Antibody IgM 11 MPL (.); Beta-2 Glycoprotein I Ab, IgA <10 SAU (.); Beta-2 Glycoprotein I Ab, IgG <10 SGU (.); Beta-2 Glycoprotein I Ab, IgM <10 SMU (.); Hexagonal Phase Phospholipid 0 sec (.); INR 1.2 ratio (.); Prothrombin Time 12.9 sec (.); Thrombin Time 19.1 sec (.)
== END ==
PROVIDERS: Visit Provider Nurse Practitioner Family
DX: R06.00 Dyspnea, unspecified (principal); R94.31 Abnormal electrocardiogram [ECG] [EKG]; E78.2 Mixed hyperlipidemia; I10 Essential (primary) hypertension; I74.9 Embolism and thrombosis of unspecified artery; I82.402 Acute embolism and thrombosis of unspecified deep veins of left lower extremity; I82.811 Embolism and thrombosis of superficial veins of right lower extremity; L81.9 Disorder of pigmentation, unspecified; F17.200 Nicotine dependence, unspecified, uncomplicated
CPT/HCPCS: 36415; 71275; 80048; 81241; 83090; 85025; 85300; 85301; 85302; 85305; 85306; 85384; 85597; 85598; 85610; 85613; 85670; 85730; 86146; 86147; 93306; Q9967

== ENCOUNTER → 2020-09-22 12:03 | Outpatient (CLI) | payer BC, SELFPAY ==
[2020-09-22 14:01] LABS: Coronavirus 19 IgG Antibody Positive (Negative); Coronavirus 19 IgM Antibody Negative (Negative)
== END ==
PROVIDERS: Visit Provider Internal Medicine
DX: Z01.818 Encounter for other preprocedural examination (principal); Z11.52 Encounter for screening for COVID-19; R06.00 Dyspnea, unspecified; R42 Dizziness and giddiness; I71.00 Dissection of unspecified site of aorta; I71.01 Dissection of thoracic aorta; I74.9 Embolism and thrombosis of unspecified artery; I82.811 Embolism and thrombosis of superficial veins of right lower extremity; I99.8 Other disorder of circulatory system; M79.604 Pain in right leg; R00.0 Tachycardia, unspecified; R93.89 Abnormal findings on diagnostic imaging of other specified body structures
CPT/HCPCS: 36415; 86328

== ENCOUNTER 2020-09-24 12:10 | Day surgery (SDC) | payer BC, SELFPAY ==
[2020-09-24] VITALS (7 sets, daily range): BP systolic 98–111; BP diastolic 55–83; PULSE 74–79; RESP 13–22; O2SAT 90–96; BMI 32.1
--- NOTE | 2020-09-24 12:28 | CA_ITS ---
APPROVED REPORT EXAM: Comprehensive 2D, Doppler, and color-flow Echocardiogram Sales Inspector: Felecia Smith RT(R) Ht: 5 ft 8 in Wt: 210lbs BSA: 2.09 BP: 117/67 mmHg Indications: Paradoxal emboli, blue tip of 5th digit of right hand Procedure After obtaining informed consent, patient underwent transesophageal echo in the Geropsychologist. Type of Sedation : Conscious Sedation Sedation was administered by Chandan Youngblood C.R.N.A. Transesophageal probe was inserted and advanced into esophagus without difficulty by Dr. Christiana Ortiz. The ADOFLO was performed without complications. Throughout the procedure, the blood pressure, pulse oximetry, cardiac rhythm, and rate were monitored. The patient tolerated the procedure without adverse effects. Recovery from conscious sedation was uneventful and vital signs were stable. Left Ventricle Left ventricle is normal size, there is mild qualitative concentric left ventricular hypertrophy, visually estimated ejection fraction 55% in the obtained views. Right Ventricle Right ventricle is normal size and contractility. Atria Left atrium is mildly enlarged, left atrial appendage free of thrombus, there is good appendage flow by spectral Doppler. Intra-atrial septum is intact, agitated saline contrast study identifies small patent foramen ovale with [id number] shunt. Aortic Valve Aortic valve is minimally thickened and fibrosed, there is no aortic stenosis or aortic insufficiency. Mitral Valve Mitral valve is grossly normal, there is mild mitral regurgitation. Tricuspid Valve Tricuspid valve grossly normal, there is mild tricuspid regurgitation, tricuspid regurgitation jet velocity is inadequate for calculation of the right ventricular systolic pressure. Pulmonic Valve Pulmonic valve is poorly visualized. Great Vessels Aortic root is normal size. Ascending aorta is normal, there is echodense mobile structure seen attached at the junction of arch and the descending thoracic aorta with mild localized, discrete aneurysmal dilation of the aorta seen associated with echodense mobile structure. 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 Part of the thrombus has focal calcification. Pericardium No significant pericardial effusion noted. Conclusion 1. Normal left ventricular size, mild concentric left ventricular hypertrophy, preserved left ventricular systolic function visually estimated ejection fraction 55% in the obtained views with no regional wall motion abnormality. 2. 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 3. Mild mitral regurgitation. 4. Agitated saline contrast study identifies patent foramen ovale with [id number] shunt. 5. No significant pericardial effusion noted. Electronically signed by : Sy Crenshaw, 09/24/2020 15:50:03
== END 2020-09-24 14:16 | disposition home or self-care (01) ==
LOC: CATHLAB 12:10
PROVIDERS: PCP Emergency Medicine; Visit Provider Internal Medicine Cardiovascular Disease
DX: I71.01 Dissection of thoracic aorta (principal); I74.9 Embolism and thrombosis of unspecified artery; I99.8 Other disorder of circulatory system; R00.0 Tachycardia, unspecified; R93.89 Abnormal findings on diagnostic imaging of other specified body structures; I25.10 Atherosclerotic heart disease of native coronary artery without angina pectoris; Z72.0 Tobacco use; E11.9 Type 2 diabetes mellitus without complications; Z79.84 Long term (current) use of oral hypoglycemic drugs; Z79.899 Other long term (current) drug therapy
CPT/HCPCS: 93312

== ENCOUNTER → 2020-10-16 11:51 | Outpatient (CLI) | payer BC, SELFPAY | PROVIDERS: PCP Emergency Medicine; Visit Provider Emergency Medicine | DX: Z20.822 Contact with and (suspected) exposure to COVID-19 (principal) | CPT/HCPCS: U0003 ==

== ENCOUNTER 2020-10-23 14:21 | Emergency (ER) | payer BC, SELFPAY ==
--- NOTE | 2020-10-23 14:33 | HMH.EDUTC ---
[facility] Disposition Clinical Impression: Cellulitis of neck Disposition: Home, Self-Care Condition on Discharge: Good Instructions: Cellulitis Additional Instructions: Apply warm wet compresses to the affected sites three or four times per day for 15 minutes as tolerated. Take the antibiotics as directed. Follow up with your regular doctor. Watch your surgery incision for any signs of infection as follow up closely for any concerns. GO TO THE ER FOR ANY WORSENING SYMPTOMS OR CONCERNS Prescriptions: Sulfamethoxazole/Trimethoprim [Bactrim DS tablet] 1 each PO BID 10 Days #20 tab Transmission Status: Received by [id number] Mupirocin [Bactroban 2% Ointment 22gm tube] 1 applicatio TP TID 7 Days #1 tube Transmission Status: Received by [facility] cephALEXin [cephALEXin 500mg capsule] 500 mg PO Q6H 10 Days #40 cap Transmission Status: Received by [id number] Referrals: Armando Polanco MD [Primary Care Provider] - Time of Disposition: 15:19 Medical Decision Making - Medical Records Medical records reviewed: No: I reviewed the patient's medical records. - Dex Inquiry Pt receiving controlled substance: No Vital Signs: 10/23/20 14:40 10/23/20 15:34 Temperature 98.1 F 98.1 F Temperature Source Oral Pulse Rate 103 H Pulse Rate [Right Brachial] 103 H Respiratory Rate 16 16 Blood Pressure 111/73 Blood Pressure [Right Arm] 111/73 Blood Pressure Mean [Right Arm] 85 Blood Pressure Source Automatic Cuff Blood Pressure Source [Right Arm] Automatic Cuff Blood Pressure Position Supine Blood Pressure Position [Right Arm] Supine 02 Sat by Pulse Oximetry 95 Oxygen Delivery Method Nasal Cannula Room Air Orders (Tests/Meds): ORDERS Category Date Time Status Wound Culture and Gram Stain Routine Micro 10/23/20 15:25 Received [facility] HPI - General Stated complaint: sore behind right ear Time Seen by Provider: 10/23/20 14:33 - History of Present Illness Provider Complaint: He states that he has a swollen painful area behind his right ear. This has been present for the past 3 days. He recently had CABG surgery done at [facility]. - Related Data Home Medications Medication Instructions Recorded Confirmed aspirin 325 mg tablet 325 mg PO DAILY 10/12/20 10/12/20 atorvastatin 40 mg tablet 40 mg PO HS 10/12/20 10/12/20 hydrocodone 7.5 mg-acetaminophen 1 tab PO Q6H PRN 10/12/20 10/12/20 325 mg tablet Metoprolol Succinate [Metoprolol 50 mg PO DAILY 10/23/20 Succinate 50mg Tablet*] Thyroid,Pork [[place] Thyroid] 30 mg PO DAILY 10/23/20 Previous Rx's Medication Instructions Recorded Mupirocin [Bactroban 2% Ointment 1 applicatio TP TID 7 Days #1 tube 10/23/20 22gm tube] Sulfamethoxazole/Trimethoprim 1 each PO BID 10 Days #20 tab 10/23/20 [Bactrim DS tablet] cephALEXin [cephALEXin 500mg 500 mg PO Q6H 10 Days #40 cap 10/23/20 capsule] Allergies Allergy/AdvReac Type Severity Reaction Status Date / Time No Known Allergies Allergy Verified 10/12/20 13:09 [facility] History - Hepatitis A Screen Attestation statement:: This patient has been screened for Hepatitis A risk factors. I have reviewed the patient's past medical history: Yes Medical History: Reports:: Coronary Artery Disease, Deep Vein Thrombosis, Diabetes Mellitus Type 2, Lung Disease, MRSA Other Medical History: Reports: Hypothyroidism, Other Laterality Cases: Bilateral: Tonsillectomy Other Surgeries: Yes: Cardiac Catheterization, Cardiac Surgery, Colonoscopy, EGD Amputation: No Fractures: No Comment: sutured stomach to diaphragm - Social History Smoking Status: Former smoker # Packs/Day (cigarettes): 1 #Yrs smoked (if former smoker): 30 Alcohol Intake: never Substance Use Type: denies use Occupational Status: employed Housing: house Family Hx:: Diabetes, Coronary Artery Disease, Hypertension ROS Obtained: Yes All systems reviewed & no additi
[2020-10-23 14:40] VITALS: BP 111/73; PULSE 103; RESP 16; TEMP 36.7; O2SAT 95; BMI 29.8
[2020-10-23 15:34] VITALS: BP 111/73; PULSE 103; RESP 16; TEMP 36.7; O2SAT 95
== END 2020-10-23 15:30 | disposition home or self-care (01) ==
PROVIDERS: Emergency Provider Nurse Practitioner Family; PCP Emergency Medicine
DX: L03.221 Cellulitis of neck (principal); Z95.1 Presence of aortocoronary bypass graft; I25.10 Atherosclerotic heart disease of native coronary artery without angina pectoris; E11.9 Type 2 diabetes mellitus without complications; Z87.891 Personal history of nicotine dependence; Z79.899 Other long term (current) drug therapy
CPT/HCPCS: 87070; 87077; 87186; 87205; 99202; G0463

== ENCOUNTER → 2021-03-05 15:36 | Outpatient (CLI) | payer BC, SELFPAY ==
[2021-03-05 15:40] LABS: Coronavirus 19, PCR Not Detected (NotDetected); Influenza A, PCR Not Detected (NotDetected); Influenza B, PCR Not Detected (NotDetected)
== END ==
PROVIDERS: Visit Provider Emergency Medicine
DX: Z20.822 Contact with and (suspected) exposure to COVID-19 (principal)
CPT/HCPCS: U0003

== ENCOUNTER → 2021-04-27 10:10 | Outpatient (CLI) | payer BC, SELFPAY ==
--- NOTE | 2021-04-27 10:21 | CT_ITS ---
PROCEDURE INFORMATION: Exam: CTA Chest With Contrast Exam date and time: 04/27/2021 10:21 AM Age: 50 years old Clinical indication: Other: F/u aortic thrombus; Prior surgery; Surgery type: Fibrous mass removed prior and lung surgery prior; Patient HX: Follow up aortic thrombus. Former smoker TECHNIQUE: Imaging protocol: Computed tomographic angiography of the chest with contrast. 3D rendering (Not supervised by radiologist): MIP and/or 3D reconstructed images were created by the technologist. Radiation optimization: All CT scans at this facility use at least one of these dose optimization techniques: automated exposure control; mA and/or kV adjustment per patient size (includes targeted exams where dose is matched to clinical indication); or iterative reconstruction. Contrast material: ISOVUE 350; Contrast volume: 75 ml; Contrast route: INTRAVENOUS (IV); COMPARISON: CT ANGIO CHEST 09/21/2020 3:18 PM FINDINGS: Pulmonary arteries: Normal. No pulmonary emboli. Aorta: Unremarkable. No aortic aneurysm. No aortic dissection. Lungs: Atelectasis and scarring in the left lung base. The lungs show no evidence for pneumonia. Pleural spaces: Unremarkable. No pneumothorax. No pleural effusion. Heart: Unremarkable. No cardiomegaly. No pericardial effusion. Lymph nodes: Unremarkable. No enlarged lymph nodes. Diaphragm: Left hemidiaphragm. Bones/joints: Unremarkable. No acute fracture. Soft tissues: Unremarkable. IMPRESSION: No acute findings.
== END ==
PROVIDERS: PCP Emergency Medicine; Visit Provider Surgery
DX: I74.10 Embolism and thrombosis of unspecified parts of aorta (principal)
CPT/HCPCS: 71275; Q9967

== ENCOUNTER → 2021-10-26 15:06 | Outpatient (CLI) | payer BC, SELFPAY ==
--- NOTE | 2021-10-26 15:09 | US_ITS ---
FINAL REPORT CLINICAL HISTORY: DECREASED PEDAL PULSES,CLAUDICATION,LOSS OF HAIR FINDINGS: Complete ankle brachial indices was obtained bilaterally. The right MIKE is 1.08. The left MIKE is 1.03. IMPRESSION: Normal ABIs bilaterally. Reviewed, Interpreted and Dictated by Mo Vidal MD Transcribed by Jannette Coello Authenticated by Mo Vidal MD on 10/26/2021 04:51:46 PM [facility]
== END ==
PROVIDERS: PCP Emergency Medicine; Visit Provider Podiatrist
DX: R09.89 Other specified symptoms and signs involving the circulatory and respiratory systems (principal)
CPT/HCPCS: 93923

== ENCOUNTER 2021-11-04 08:00 | Outpatient (RCR) | payer BC, SELFPAY ==
--- NOTE | 2021-10-28 09:27 | HMH.PTOPEV ---
PT Outpatient Evaluation Rehab PT Outpatient Evaluation Start: 10/28/21 08:07 Freq: Status: Active Protocol: Document 10/28/21 08:40 CARMEN (Rec: 10/28/21 09:27 CARMEN [id number]) Electronically Signed By Poli Jackson, PT 10/28/21 08:40 Outpatient Therapy Subjective History Subjective History Pt reports h/o chronic bilateral plantar fasciitis for ~2 yrs. Pt reports R>L sided discomfort recently, and 'what injections used to give me relief have now provided almost no relief at all'. Pt reports severe bilateral heel/ foot pain upon standing in morning. Chief Complaint Pain Symptom Type Ache,Sharp,Dull Symptoms Relieved By Rest/Positioning,Ice Symptoms Aggravated By Standing,Walking Prior Functional Limitations Standing,Walking Current Functional Limitations Standing,Walking Symptom Description Constant but Variable Level of pain today (0-10) 4 Pain scale - at its best (0-10) 3 Pain scale - at its worst (0-10) 8 Ankle/Foot Eval Gait Observation General Gait Pattern Observation Antalgic Gait,Wide Based Gait Palpation Tenderness bilateral Ankle/Foot Palpation Findings Tenderness Ankle/Foot Palpation Overall Comment 2/4 merna. plantar fascia ROM Ankle/Foot ROM Reason Not Measured Within Functional Limits Great Toe ROM Reason Not Measured Within Functional Limits MMT Ankle Dorsiflexion Strength Grade 5 Normal Ankle Plantarflexion Strength Grade 5 Normal Foot Eversion Strength Grade 5 Normal Foot Inversion Strength Grade 5 Normal Special Tests Ankle Anterior Drawer Test Negative Left,Negative Right Ankle Eversion Test Negative Left,Negative Right Talar Tilt Test Negative Left,Negative Right Foot Interdigital Neuroma Test Negative Left,Negative Right Outpatient Therapy Assessment Impairments Problems/Impairmments Palpation Tenderness,Impaired Gait Pattern,Impaired Walking, Impaired Standing,Subjective C /O Pain,Impaired Self Care/ Self Management Prognosis Rehab Potential Good Clinical Impression Consistent with Diagnosis Yes Short Term Goals Number of Weeks 4 Decreased Palpation Tenderness Yes: 1/4 bilateral plantar fascia Increase Ability to Walk Yes: 30min Increase Ability to Stand Yes: 30min Decrease Subjective C/O Pain Yes: 3-4/10 w/above activities Patient to be Ind w/ HEP Yes Manager Applied Go
== END 2021-11-04 08:05 | disposition home or self-care (01) ==
LOC: PT 08:00
PROVIDERS: PCP Emergency Medicine; Visit Provider Podiatrist
DX: M72.2 Plantar fascial fibromatosis (principal)
CPT/HCPCS: 97010; 97014; 97033; 97035; 97140; 97163; G0283

== ENCOUNTER → 2021-12-02 13:13 | Outpatient (CLI) | payer BC, SELFPAY ==
[2021-12-02 17:15] LABS: Chloride 108 mmol/L (98-107); Potassium 4.4 mmoL/L (3.5-5.1); Sodium 140 mmol/L (136-145)
[2021-12-02 17:18] LABS: Alanine Aminotransferase 44 U/L (12-78); Albumin Level 3.9 g/dl (3.5-5.0); Albumin/Globulin Ratio 1.5 (1.1-1.8); Alkaline Phosphatase 83 U/L (38-126); Anion Gap 10.4 mEq/L (5-15); Aspartate Amino Transferase 34 U/L (17-59); Bilirubin,Total 0.3 mg/dl (0.2-1.3); Blood Urea Nitrogen 17 mg/dl (9-20); Carbon Dioxide 26 mmol/L (22.0-30.0); Estimated Glomerular Filt Rate 89 ml/min (>60); GFR (African American) 107 ML/MIN (>60); Globulin 2.6 g/dL (1.3-3.2); Total Protein,Serum 6.5 g/dl (6.3-8.2)
[2021-12-02 17:19] LABS: Calcium 9.7 mg/dl (8.4-10.2); Glucose 107 mg/dl (74-100)
[2021-12-02 17:45] LABS: Basophils # 0.1 K/mm3 (0-0.2); Basophils % 1.1 % (0.1-2.0); Eosinophils # 0.1 K/mm3 (0.0-0.4); Eosinophils % 1.2 % (0.1-12.0); Hematocrit 49.5 % (42.0-52.0); Hemoglobin 16.5 g/dL (14.1-18.0); Lymphocytes # 1.7 K/mm3 (0.7-4.5); Lymphocytes % 22.7 % (10-50); Mean Corpuscular HGB Conc 33.3 g/dL (31.8-35.4); Mean Corpuscular Hemoglobin 28.5 pg (27.0-31.2); Mean Corpuscular Volume 85.6 fl (80-94); Mean Platelet Volume 11.5 fl (7.4-10.4); Monocytes # 0.5 K/mm3 (0.1-1.0); Monocytes % 7.2 % (1.7-9.3); Neutrophils # 5.1 K/mm3 (1.8-7.8); Neutrophils % 67.8 % (37.0-80.0); Platelet Count 149 K/mm3 (142-424); Red Blood Count 5.79 M/mm3 (4.60-6.20); Red Cell Distribution Width 14.6 % (11.5-17.5); White Blood Count 7.5 K/mm3 (4.8-10.8)
[2021-12-02 17:50] LABS: Thyroid Stimulating Hormone 4.14 uIU/mL (0.465-4.68)
[2021-12-02 18:18] LABS: Erythrocyte Sedimentation Rate 7 mm/hr (0-20)
[2021-12-02 18:48] LABS: Hemoglobin A1C 6.3 % (4.0-6.0)
[2021-12-05 10:15] LABS: Testosterone,Free 2.9 pg/mL (7.2-24.0)
[2021-12-11 19:44] LABS: Antinuclear Antibodies (ANA) NEGATIVE
== END ==
PROVIDERS: PCP Family Medicine; Visit Provider Family Medicine
DX: R73.03 Prediabetes (principal); E78.5 Hyperlipidemia, unspecified; E29.1 Testicular hypofunction
CPT/HCPCS: 80053; 83036; 84402; 84443; 85025; 85651; 86038

== ENCOUNTER → 2021-12-07 10:08 | Outpatient (CLI) | payer BC, SELFPAY ==
--- NOTE | 2021-12-07 10:08 | CA_ITS ---
APPROVED REPORT EXAM: Comprehensive 2D, Doppler, and color-flow Echocardiogram Ethnic Studies Professor: Ceci Nicolas CRT/HOWIE ROCHA Ht: 5 ft 10 in Wt: 230lbs BSA: 2.21 BP: 140/76 mmHg Indications: Diabetes, SOB, CAD, HX PFO, HX PARALYZED DIAGRAPHM, ABN ADOLFO 2020 S/P CARDIOTHORACIC SURGERY AT DUE TO ABN ADOLFO TDS POOR WINDOWS SCANNED BY 2 TECHS 2D Dimensions LVOT 1.91 cm (M/F) 1.5-2.5 M-Mode Dimensions RVDd 2.18 cm (0.9-2.6) LA Diam 3.40 cm (1.9-4.0) LVDd 2.75 cm (3.5-5.7) Ao Diam 4.14 cm (2.0-3.7) LVDs 1.75 cm (3.5-5.7) IVSd 1.39 cm (0.6-1.1) PWd 0.54 cm (0.6-1.1) EF (Teich) 68.20% FS 36.40% EDV (Teich) 28.30 mL ESV (Teich) 9.00 mL Tricuspid Valve TR P. Velocity 123.00 cm/s RAP Estimate 10.00 mmHg RVSP 16.10 mmHg Left Ventricle Technically difficult study because of the patient factors and poor acoustic windows, left atrium is mildly enlarged, left ventricle is normal size, mild concentric left ventricular hypertrophy, estimated ejection fraction 55% with no obvious regional wall motion abnormality in the visualized segments. Diastolic parameters are inconclusive. Right Ventricle Right atrium and right ventricle are normal size and contractility. Aortic Valve Aortic valve is thickened and calcified without Doppler evidence of aortic stenosis or aortic insufficiency, leaflet morphology is not well visualized. Mitral Valve Mitral valve is minimally thickened and fibrosed, there is mild mitral regurgitation. Tricuspid Valve Tricuspid valve grossly normal, there is trace tricuspid regurgitation. Tricuspid regurgitation jet velocity is inadequate for calculation of the right ventricular systolic pressure. Pulmonic Valve Pulmonic valve is poorly visualized. Great Vessels Aortic root is normal size. Inferior vena cava is poorly visualized. Pericardium No significant pericardial effusion noted. Conclusion 1. Technically difficult study because of the patient factors and poor acoustic windows. 2. Mildly enlarged left ring, normal left ventricular size, mild concentric left ventricular hypertrophy, estimated ejection fraction 55% with no regional wall motion abnormality, diastolic parameters are inconclusive. 3. Trace mitral and tricuspid regurgitation. 4. No significant pericardial effusion. 5. Inferior vena cava is poorly visualized. Electronically signed by : Sy Crenshaw MD 12/07/2021 19:48:01
== END ==
PROVIDERS: PCP Emergency Medicine; Visit Provider Emergency Medicine
DX: Q21.1 Atrial septal defect (principal)
CPT/HCPCS: 93306

== ENCOUNTER 2022-06-18 15:32 | Emergency (ER) | payer BC, SELFPAY ==
--- NOTE | 2022-06-18 16:40 | EXP.UTC ---
Discharge Plan Disposition Patient Disposition: Home, Self-Care Condition: Good Prescriptions Prescriptions: New methylprednisolone 4 mg Tablets,Dose Pack 4 mg PO DIRECTED Qty: 21 0RF No Action Xarelto 20 mg tablet 20 mg PO DAILY Qty: 30 2RF Rx Instructions: must administer with evening meal testosterone cypionate [Depo-Testosterone] 200 mg/mL oil 200 mg IM Q2W Qty: 10 0RF Referrals Follow up/Referrals: Armando Polanco MD [Primary Care Provider] - See instructions Activity Restrictions/Add. Instructions Additional Instructions/Restrictions: Go home and rest. It would be best if you rested tomorrow too. No heavy lifting. No twisting. Take the medications as directed. Follow up with your regular doctor. GO TO THE ER FOR ANY WORSENING SYMPTOMS OR CONCERN, ESPECIALLY BOWEL OR BLADDER ISSUES, SADDLE AREA NUMBNESS, FEVER, ETC Clinical Impressions Clinical Impression: Low back pain Stand Alone Forms Stand Alone Forms: Work/School Release Instructions Patient Instructions: DI for Low Back Pain, Methylprednisolone Discharge ED Provider: Justin Murillo [facility] General Stated complaint: lower back pain Time Seen by Provider: 06/18/22 16:36 History of Present Illness Provider Complaint: He states that he has had low back pain that radiates to his right leg for the past couple of days. He denies any recent injuries. He has a long history of back pain. He denies chest pain, increased shortness of breath and other complaints. Related Data Previous Rx's Medication Instructions Recorded rivaroxaban 20 mg tablet (Xarelto) 20 mg PO DAILY #30 tabs 12/21/21 testosterone cypionate 200 mg/mL 200 mg IM Q2W #10 mL 01/27/22 intramuscular oil (Depo-Testosterone) methylprednisolone 4 mg tablets in 4 mg PO DIRECTED #21 tabs 06/18/22 a dose pack Allergies Allergy/AdvReac Type Severity Reaction Status Date / Time No Known Allergies Allergy Verified 06/18/22 16:55 [facility] Disclaimer: The information contained in this section may have been updated after the patient was seen, as this information can be updated by other users. Medical History Abnormal cardiovascular stress test Abnormal echocardiogram Abnormal EKG Arterial thrombosis Atypical angina BMI 31.0-31.9,adult HLD (hyperlipidemia) HTN (hypertension) Hypothyroidism MRSA (methicillin resistant staph aureus) culture positive Tobacco dependence syndrome Social History Smoking Status: Former smoker pack-years: 30 alcohol intake: never substance use type: denies use current occupational status: employed Travel in the last 8 weeks: None housing: house current occupational exposures/hazards: No ROS Obtained: Yes All systems reviewed & no additional complaints except as documented Constitutional Constitutional: Denies chills and Denies fever(s) Eyes Eyes: Denies eye discharge ENT Ears, Nose, Mouth, and Throat: Denies dizziness, Denies otalgia and Denies sore throat Cardiovascular Cardiovascular: Denies chest pain Respiratory Respiratory: Denies shortness of breath, Denies chest congestion, Denies cough, Denies stridor and Denies wheezing Gastrointestinal Gastrointestingal: Denies nausea or vomiting Musculoskeletal Musculoskeletal: Reports as per HPI and Reports back pain Integumentary/Breasts Skin/Breast: Denies rash Neurologic Neurologic: Denies dizziness and Denies paresthesias Allergic/Immunologic Allergic/Immunologic: Denies wheezing Physical Exam General General appearance: alert and in no apparent distress Head Head exam: atraumatic, normocephalic and normal inspection Eye Eye exam: Present normal appearance, PERRL and EOMI ENT ENT exam: Present normal exam, normal oropharynx, mucous membranes moist, TM's normal bilaterally and normal external ear exam Neck Neck exam: Pr
[2022-06-18 16:52] VITALS: BP 122/97; PULSE 120; RESP 18; TEMP 36.7; O2SAT 95; BMI 34.9
[2022-06-18 17:21] LABS: UTC Influenza A Antigen Negative (Negative); UTC Influenza B Antigen Negative (Negative)
[2022-06-18 17:42] VITALS: BP 122/97; PULSE 120; RESP 18; TEMP 36.7
== END 2022-06-18 17:43 | disposition home or self-care (01) ==
PROVIDERS: Emergency Provider Nurse Practitioner Family; PCP Emergency Medicine
DX: M54.50 Low back pain, unspecified (principal); R94.31 Abnormal electrocardiogram [ECG] [EKG]; I10 Essential (primary) hypertension; I20.9 Angina pectoris, unspecified; I74.9 Embolism and thrombosis of unspecified artery; E78.5 Hyperlipidemia, unspecified; E03.9 Hypothyroidism, unspecified; Z79.01 Long term (current) use of anticoagulants; Z79.51 Long term (current) use of inhaled steroids; Z79.899 Other long term (current) drug therapy; Z86.14 Personal history of Methicillin resistant Staphylococcus aureus infection; Z87.891 Personal history of nicotine dependence
CPT/HCPCS: 87804; 99213; G0463

== ENCOUNTER 2022-11-22 20:08 | Emergency (ER) | payer BC, SELFPAY ==
[2022-11-22 20:29] VITALS: BP 109/85; PULSE 114; RESP 17; TEMP 36.8; O2SAT 92; BMI 34.9
--- NOTE | 2022-11-22 20:56 | HMH.EDGENADL ---
Discharge Plan Disposition Patient Disposition: Home, Self-Care Prescriptions Prescriptions: New methylprednisolone [Medrol (Rc)] 4 mg tablets,dose pack 4 mg PO TID Qty: 21 0RF No Action Xarelto 20 mg tablet 20 mg PO DAILY Qty: 30 2RF Rx Instructions: must administer with evening meal testosterone cypionate [Depo-Testosterone] 200 mg/mL oil 200 mg IM Q2W Qty: 10 0RF methylprednisolone 4 mg Tablets,Dose Pack 4 mg PO DIRECTED Qty: 21 0RF Referrals Follow up/Referrals: Armando Polanco MD [Primary Care Provider] - See instructions Sly Rodriguez [Referring] - See instructions Clinical Impressions Clinical Impression: Back pain, Left peroneal nerve palsy, Lumbar and sacral osteoarthritis, Lumbar degenerative disc disease, Renal insufficiency Stand Alone Forms Stand Alone Forms: Work/School Release Discharge ED Provider: Erma Elizondo Adult HPI General Chief complaint: PAIN Stated complaint: foot pain Time Seen by Provider: 11/22/22 22:20 Mode of Arrival: Family Vehicle Source of Information: Significant Other Limitations: No Limitations Description of Symptoms (Recalled from ER Triage Doc. by RN): 52 yo male presents with chief complaint of left leg pain; patient states he has had chronic issues with his feet for years and been interacting with podiatry, but that this pain is different and not currently going away with his normal interventions. History includes sacral spinal surgeryin relation to previous issues with his sciatic nerve. Patient is really just interested in immediate relief. History of Present Illness HPI narrative: Patient is a 52-year-old male who is here secondary to left lower leg and foot severe pain. He said he has had plantar fascia before but this is not like his plantar fascia. The pain is on the top of the foot and the lower leg its not in his bottom of his foot like his plantar fasciitis. Patient has history of laminectomy in his lower back for sciatic nerve impingement. Patient has chronic back pain. He does not have any radicular pain at this point. Pain was so bad since he was working on the floor squatting bending twisting his lower leg that he did not know if he pulled something if it was related to his back. Pain was 10 out of 10 in terms of burning type pain. He put it in cold water his left lower leg and that did not help. No paresthesia in his perineum or bladder or bowel loss control. Onset (ago): hour(s) Location: back, left and lower extremity Radiation: non-radiation Severity: moderate Severity scale (1-10): >10 Quality: burning Consistency: intermittent Relieving factors: none Exacerbating factors: none Associated symptoms: denies other symptoms Treatments prior to arrival: none Related Data Previous Rx's Medication Instructions Recorded rivaroxaban 20 mg tablet (Xarelto) 20 mg PO DAILY #30 tabs 12/21/21 testosterone cypionate 200 mg/mL 200 mg IM Q2W #10 mL 01/27/22 intramuscular oil (Depo-Testosterone) methylprednisolone 4 mg tablets in 4 mg PO DIRECTED #21 tabs 06/18/22 a dose pack methylprednisolone 4 mg tablets in 4 mg PO TID 3 doses #21 tabs 11/23/22 a dose pack (Medrol (Rc)) Allergies Allergy/AdvReac Type Severity Reaction Status Date / Time No Known Allergies Allergy Verified 06/18/22 16:55 [facility] Disclaimer: The information contained in this section may have been updated after the patient was seen, as this information can be updated by other users. Medical History Abnormal cardiovascular stress test Abnormal echocardiogram Abnormal EKG Arterial thrombosis Atypical angina BMI 31.0-31.9,adult HLD (hyperlipidemia) HTN (hypertension) Hypothyroidism MRSA (methicillin resistant staph aureus) culture positive Tobacco dependence syndrome Social History Smoking Status: Current larisa
--- NOTE | 2022-11-22 21:35 | CT_ITS ---
PROCEDURE INFORMATION: Exam: CT Lumbar Spine With Contrast Exam date and time: 11/22/2022 10:20 PM Age: 52 years old Clinical indication: Low back pain TECHNIQUE: Imaging protocol: Computed tomography of the lumbar spine with contrast. Radiation optimization: All CT scans at this facility use at least one of these dose optimization techniques: automated exposure control; mA and/or kV adjustment per patient size (includes targeted exams where dose is matched to clinical indication); or iterative reconstruction. Contrast material: ISOVUE; Contrast volume: 75 ml; Contrast route: IV; REPORTING DATA: Count of CT and Cardiac NM exams in prior 12 months: This patient has received 0 known CTs and 0 known cardiac nuclear medicine studies in the 12 months prior to the current study. COMPARISON: US TESTICULAR 08/12/2019 3:08 PM FINDINGS: Bones/joints: There are 5 [id number] lumbar type vertebral bodies. No evidence of acute fracture or malalignment. 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 Multi-level degenerative disc disease, most prominent at L5-S1 where there is disc space narrowing and disc vacuum phenomenon. Multilevel degenerative changes resulting in varying degrees of spinal canal stenosis and neuroforaminal narrowing, most significant at L5-S1 where there is moderate to severe bilateral neuroforaminal narrowing. Soft tissues: Fatty atrophy of the lower right paraspinal musculature suggestive of chronic nerve damage. IMPRESSION: 1. No evidence of acute osseous abnormality in the lumbar spine. 2. 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 3. Multi-level degenerative changes, as detailed above. 4. Fatty atrophy of the lower right paraspinal musculature suggestive of chronic nerve damage.
[2022-11-22 21:45] LABS: Basophils # 0.1 K/mm3 (0-0.2); Basophils % 0.8 % (0.1-2.0); Eosinophils # 0.2 K/mm3 (0.0-0.4); Eosinophils % 1.1 % (0.1-12.0); Hematocrit 56.3 % (42.0-52.0); Lymphocytes % 14.6 % (10-50); Mean Corpuscular HGB Conc 32.7 g/dL (31.8-35.4); Mean Corpuscular Hemoglobin 27.6 pg (27.0-31.2); Mean Corpuscular Volume 84.5 fl (80-94); Mean Platelet Volume 9.3 fl (7.4-10.4); Monocytes # 0.6 K/mm3 (0.1-1.0); Monocytes % 4.7 % (1.7-9.3); Neutrophils # 10.7 K/mm3 (1.8-7.8); Neutrophils % 78.8 % (37.0-80.0); Platelet Count 227 K/mm3 (142-424); Red Blood Count 6.66 M/mm3 (4.60-6.20); Red Cell Distribution Width 15.3 % (11.5-17.5); White Blood Count 13.6 K/mm3 (4.8-10.8)
[2022-11-22 22:01] LABS: Chloride 100 mmol/L (98-107); Potassium 5.4 mmoL/L (3.5-5.1); Sodium 139 mmol/L (136-145)
[2022-11-22 22:04] LABS: Alanine Aminotransferase 56 U/L (12-78); Albumin Level 4.6 g/dl (3.5-5.0); Albumin/Globulin Ratio 1.2 (1.1-1.8); Alkaline Phosphatase 90 U/L (38-126); Anion Gap 18.4 mEq/L (5-15); Aspartate Amino Transferase 48 U/L (17-59); Bilirubin,Total 0.6 mg/dl (0.2-1.3); Blood Urea Nitrogen 27 mg/dl (9-20); Calcium 9.3 mg/dl (8.4-10.2); Carbon Dioxide 26 mmol/L (22.0-30.0); Creatinine Clearance Estimated 84 mL/min (50-200); Estimated Glomerular Filt Rate 49 ml/min (>60); GFR (African American) 59 ML/MIN (>60); Globulin 3.7 g/dL (1.3-3.2); Glucose 102 mg/dl (74-100); Total Protein,Serum 8.3 g/dl (6.3-8.2)
[2022-11-22 22:09] LABS: C-Reactive Protein 7.3 mg/L (0-4)
[2022-11-22 22:58] LABS: Erythrocyte Sedimentation Rate 1 mm/hr (0-20); Hemoglobin 18.4 g/dL (14.1-18.0)
[2022-11-23 00:25] VITALS: BP 141/75; PULSE 63; RESP 16; TEMP 36.8; O2SAT 98
== END 2022-11-23 00:33 | disposition home or self-care (01) ==
PROVIDERS: Emergency Provider Emergency Medicine; PCP Emergency Medicine
DX: S84.12XA Injury of peroneal nerve at lower leg level, left leg, initial encounter (principal); M51.36 Other intervertebral disc degeneration, lumbar region; M47.817 Spondylosis without myelopathy or radiculopathy, lumbosacral region; X58.XXXA Exposure to other specified factors, initial encounter; F17.200 Nicotine dependence, unspecified, uncomplicated
CPT/HCPCS: 72132; 80053; 85025; 85651; 86140; 96361; 96374; 99284; 99285; Q9967

== ENCOUNTER → 2022-12-02 12:35 | Outpatient (CLI) | payer BC, SELFPAY ==
--- NOTE | 2022-12-02 12:36 | MR_ITS ---
FINAL REPORT CLINICAL HISTORY: Low Back Pain LEFT FOOT PAIN ON THE TOP , NUMBNESS IN TOES THROBBING SENSATION IN LEG COMPARISON: None FINDINGS: Multiplanar MR imaging of the lumbar spine was performed without contrast. On the sagittal T2-weighted images, disc degeneration is seen at several levels. The vertebral alignment is normal. There are mild endplate changes at several levels. Several hemangiomas are noted. There is no evidence of fracture. No bony mass is identified. The conus has an unremarkable appearance. L1-2: An annular bulge is present. Right foraminal disc protrusion. Mild right neural foraminal narrowing. L2-3: There is no significant canal stenosis or neural foraminal narrowing. L3-4: There is no significant canal stenosis or neural foraminal narrowing. L4-5: An annular bulge is present. Small central disc protrusion. Mild bilateral neural foraminal narrowing. L5-S1: Annular disc bulge, facet arthropathy, and osteophytes. Central disc protrusion contacts the S1 nerve roots. Moderate bilateral neural foraminal narrowing. IMPRESSION: Multilevel degenerative disc disease and spondylosis as described with disc protrusions as above.. Reviewed, Interpreted and Dictated by Celestino Hodges III, MD Transcribed by Rosalva Francois Authenticated and [facility]
== END ==
PROVIDERS: PCP Emergency Medicine; Visit Provider Nurse Practitioner Family
DX: M54.50 Low back pain, unspecified (principal); M47.817 Spondylosis without myelopathy or radiculopathy, lumbosacral region; M51.36 Other intervertebral disc degeneration, lumbar region
CPT/HCPCS: 72148; 76376

== ENCOUNTER → 2022-12-06 11:09 | Outpatient (CLI) | payer BC, SELFPAY ==
--- NOTE | 2022-12-06 | US_ITS ---
FINAL REPORT CLINICAL HISTORY: EX SMOKER, CAD FINDINGS: COMPLETE ANKLE/BRACHIAL INDICES BILATERAL Complete ankle brachial indices were obtained. The right MIKE is 1.0. The left MIKE is 0.30. IMPRESSION: Normal MIKE on the right. Severe peripheral vascular disease on the left. Consider CTA or MRA. Reviewed, Interpreted and Dictated by Celestino Hodges III, MD Transcribed by Jannette Coello Authenticated and [facility]
--- NOTE | 2022-12-06 11:10 | CA_ITS ---
FINAL REPORT TECHNIQUE: Ultrasound images of the deep venous system were obtained from the left groin to the calf veins. CLINICAL HISTORY: pain in left lower leg, ex smoker with hair loss to lateral left calf. FINDINGS: The deep venous system is normally compressible. Normal flow is identified. IMPRESSION: No evidence of left lower extremity DVT. Reviewed, Interpreted and Dictated by Celestino Hodges III, MD Transcribed by Neri Rosenberg Authenticated and [facility]
== END ==
PROVIDERS: PCP Emergency Medicine; Visit Provider Nurse Practitioner Family
DX: M79.662 Pain in left lower leg (principal); R60.0 Localized edema
CPT/HCPCS: 93923; 93971

== ENCOUNTER 2022-12-08 16:19 | Inpatient (IN) | payer BC, SELFPAY ==
[2022-12-08] VITALS (32 sets, daily range): BP systolic 101–144; BP diastolic 74–99; PULSE 85–113; RESP 12–22; TEMP 36.1–37; O2SAT 89–100; BMI 34.2
--- NOTE | 2022-12-08 12:18 | IR_ITS ---
APPROVED REPORT Patient Location: Outpatient [facility] Tender: TEE Ascencio RT (R) PROCEDURES Right femoral arterial access Catheter placed in the abdominal aorta Abdominal aortography Repositioning of the catheter in the abdominal aorta Bilateral iliofemoral runoff Mechanical thrombectomy to the left popliteal artery Angioplasty to the left peroneal artery Angioplasty to the left PT trunk Angioplasty left popliteal artery Self-expanding stent deployment to the left popliteal artery INDICATION MIKE 0.3 on the left, Cool pulseless left foot, Peripheral artery disease, Atherosclerosis with thrombosis of the left popliteal artery and distal circulation Informed consent was obtained prior to the procedure. COMPLICATIONS None Estimated Blood Loss: Less than 10 ml TECHNIQUE 1% lidocaine used anesthetize the right groin the right femoral artery was accessed via the Salinger technique and a 5 [place] sheath was placed in the right femoral artery. A pigtail catheter was placed in the abdominal aorta abdominal aortography was performed. The catheter was then repositioned and bilateral iliofemoral was performed. Following this a rim catheter was used to intubate the left common iliac artery and an advantage wire was placed distally into the left SFA under fluoroscopic guidance. The 5 [place] sheath was exchanged for a 6 [place] destination sheath. Therapeutic heparin was administered giving a therapeutic ACT and a long advantage wire was used to traverse the occlusion of the left popliteal artery. A CAT 6 thrombectomy mechanical aspiration device was placed into the popliteal artery. Some thrombus was removed however the vast majority of the vessel remained thrombosed. Angioplasty was performed in the peroneal artery left PT trunk and left popliteal artery. Following this a 6 mm x 40 mm self-expanding stent was placed in the left popliteal artery. An additional 6 mm x 20 mm self-expanding stent was placed proximal to this. Additional manipulation and angioplasty was performed at the PT trunk. This failed to completely open the vessel. An additional 6 mm x 40 mm self-expanding stent was placed proximal to the first self-expanding stent. A 6 mm x 40 mm balloon was then deployed throughout the midportion and proximal portion of the popliteal artery. At the end of the procedure the sheath was secured into place thrombolytics and heparin drips were going to be infused overnight. ANGIOGRAPHIC RESULTS Distal abdominal aorta is patent Bilateral common internal and external iliac arteries are patent Bilateral common femoral arteries are patent Bilateral profunda femoris arteries are patent Bilateral superficial femoral arteries are patent Right popliteal is patent with three-vessel runoff identified below the knee Left popliteal artery thrombosed with noted minimal collateralization IMPRESSION Subacute thrombosis of the left popliteal artery with no significant distal flow producing a cold ischemic left foot Partially successful thrombectomy with partially successful self-expanding bare-metal stent deployment in the proximal mid and distal popliteal artery Persistent thrombosis of the anterior and posterior tibialis artery as well as the peroneal artery PLAN 1. Arterial sheath was secured into place and thrombolytics will be infused overnight along with a heparin drip 2. Patient be brought back to the Sheet Metal Layout Worker tomorrow for further angiographic evaluation 3. Pain medicines and adequate sedation to keep patient's supine overnight. 4. Supportive care Electronically signed by : Kirby Cornell MD 12/08/2022 18:01:07
[2022-12-08 13:04] LABS: Basophils # 0.1 K/mm3 (0-0.2); Basophils % 0.6 % (0.1-2.0); Eosinophils # 0.2 K/mm3 (0.0-0.4); Eosinophils % 1.9 % (0.1-12.0); Hematocrit 49.2 % (42.0-52.0); Hemoglobin 16.3 g/dL (14.1-18.0); Lymphocytes # 1.8 K/mm3 (0.7-4.5); Lymphocytes % 17.1 % (10-50); Mean Corpuscular HGB Conc 33.2 g/dL (31.8-35.4); Mean Corpuscular Hemoglobin 28.1 pg (27.0-31.2); Mean Corpuscular Volume 84.9 fl (80-94); Mean Platelet Volume 8.8 fl (7.4-10.4); Monocytes # 0.4 K/mm3 (0.1-1.0); Monocytes % 4.2 % (1.7-9.3); Neutrophils % 76.2 % (37.0-80.0); Platelet Count 215 K/mm3 (142-424); Red Cell Distribution Width 14.4 % (11.5-17.5); White Blood Count 10.5 K/mm3 (4.8-10.8)
[2022-12-08 14:30] LABS: Chloride 95 mmol/L (98-107); Sodium 136 mmol/L (136-145)
[2022-12-08 14:34] LABS: Blood Urea Nitrogen 22 mg/dl (9-20); Calcium 8.6 mg/dl (8.4-10.2); Carbon Dioxide 29 mmol/L (22.0-30.0); Creatinine Clearance Estimated 112 mL/min (50-200); Estimated Glomerular Filt Rate 70 ml/min (>60); GFR (African American) 85 ML/MIN (>60); Glucose 276 mg/dl (74-100)
[2022-12-08 17:05] LABS: CATHL Activated Clotting Time 230 SEC (74-125)
--- NOTE | 2022-12-08 19:38 | PC.NURSE ---
pt arrived via haritha @ 517
--- NOTE | 2022-12-08 19:59 | PC.NURSE ---
Heparin drip titrated to 700units/hr- 14ml/hr at this time per pharmacy
--- NOTE | 2022-12-08 20:17 | EXP.HP ---
History of Present Illness *Admission Date: 12/08/22 *Reason for visit:: Left Leg ischemia *History of present illness: Mr. De Jesus is a 52-year-old male who presented to [facility] as a direct admit from the technical laboratory asst earlier today. He underwent a vascular procedure for a subacute thrombus of the left popliteal artery with no significant distal flow. The procedure was partially successful with a bare metal stent deployment in the proximal and mid and distal popliteal artery. He has been placed on Alteplase and Heparin overnight and the extremity will be monitored. It is marked at 20 at the thigh and 15 at the calf. The plan is to go back to the technical laboratory asst again in the morning. He is seen following the surgery, is groggy, but answers questions appropriately. He verbalizes understanding to the plan of care. [facility] Disclaimer: The information contained in this section may have been updated after the patient was seen, as this information can be updated by other users. Medical History Abnormal cardiovascular stress test Abnormal echocardiogram Abnormal EKG Arterial thrombosis Atypical angina BMI 31.0-31.9,adult HLD (hyperlipidemia) HTN (hypertension) Hypothyroidism MRSA (methicillin resistant staph aureus) culture positive Tobacco dependence syndrome Social History Smoking Status: Current some day smoker alcohol intake: never substance use type: denies use current occupational status: employed Travel in the last 8 weeks: None housing: house current occupational exposures/hazards: No Review of Systems Review of Systems Review of systems:: pertinent systems reviewed and negative unless documented below Constitutional Constitutional: Reports system reviewed and no additional complaints, except as documented Eyes Eyes: Reports system reviewed and no additional complaints, except as documented ENT Ears, Nose, Mouth, and Throat: Reports system reviewed and no additional complaints, except as documented *Cardiovascular Cardiovascular: Reports claudication and Reports dyspnea on exertion *Respiratory Respiratory: Reports dyspnea on exertion *Gastrointestinal Gastrointestinal: Reports system reviewed and no additional complaints, except as documented *Genitourinary Genitourinary: Reports system reviewed and no additional complaints, except as documented *Musculoskeletal Musculoskeletal: Reports radiating pain into limb and Reports tingling Integumentary/Breasts Skin/Breast: Reports system reviewed and no additional complaints, except as documented *Neurologic Neurologic: Reports tingling Psychiatric Psychiatric: Reports system reviewed and no additional complaints, except as documented Endocrine Endocrine: Reports system reviewed and no additional complaints, except as documented Hematologic/Lymphatic Hematologic/Lymphatic: Reports system reviewed and no additional complaints, except as documented Allergic/Immunologic Allergic/Immunologic: Reports system reviewed and no additional complaints, except as documented Meds Home Medications and Allergies Home Medications Medication Instructions Recorded Confirmed Type IV with Additives 1,000 units/hr IV 12/09/22 Rx IV with Additives 1,500 units/hr IV 12/09/22 Rx New Prescriptions to Start Prescriptions: IV with Additives Heparin Sodium,Porcine/D5w [Heparin 25,000 units in D5W 500mL premix] 500 ml 1,000 units/hr IV IV with Additives Heparin Sodium,Porcine/D5w [Heparin 25,000 units in D5W 500mL premix] 500 ml 1,500 units/hr IV Allergies Allergy/AdvReac Type Severity Reaction Status Date / Time No Known Allergies Allergy Verified 12/07/22 13:25 Exam Data for Last 24 hours Vital signs and Labs for Last 24 Hours: Temp Pulse Resp BP Pulse Ox 97.2 F L
[2022-12-08 21:15] LABS: Hemoglobin A1C 7.4 % (4.0-6.0)
[2022-12-08 22:13] LABS: POC Glucose,Bedside 225 (70-110)
[2022-12-08 22:25] LABS: PTT Heparin (inpatient only) 47.1 Seconds (23.6-34.0)
--- NOTE | 2022-12-08 22:34 | PC.NURSE ---
Heparin titrated to 900units/hr- 18ml/hr per pharmacy order, recheck PTT @0500
[2022-12-08 23:39] LABS: Coronavirus 19, PCR Not Detected (NotDetected); Influenza A, PCR Not Detected (NotDetected); Influenza B, PCR Not Detected (NotDetected)
[2022-12-09] VITALS (45 sets, daily range): BP systolic 105–150; BP diastolic 44–97; PULSE 72–117; RESP 16–21; TEMP 36.4–36.8; O2SAT 91–96; BMI 34.4; BMI 34.7
--- NOTE | 2022-12-09 00:08 | PC.NURSE ---
Thigh and Calf Measurements taken at this time, unchanged from beginning of shift, thigh 20 inches, calf 15 inches. Left foot continues to be cold with diminished pulses, and mild mottling to top of foot also unchanged from beginning of shift.
--- NOTE | 2022-12-09 03:47 | PC.NURSE ---
Patient resting comfortably in bed at this time, has c/o left leg pain intermittently this shift, treated with pain meds per emar with good results, 6F sheath remains in place in Right groin, site cdi with no bleeding or hematoma noted, LLE remains cold with diminished pulses, mild mottling noted to top of left foot unchanged this shift, remains on 2LNC, heparin infusing at 900 units/hr in RAC and alteplase infusing at 2mg/hr through sheath.
[2022-12-09 06:07] LABS: POC Glucose,Bedside 202 (70-110)
[2022-12-09 06:13] LABS: Basophils # 0.1 K/mm3 (0-0.2); Basophils % 0.4 % (0.1-2.0); Eosinophils # 0.1 K/mm3 (0.0-0.4); Eosinophils % 0.4 % (0.1-12.0); Hematocrit 44.7 % (42.0-52.0); Hemoglobin 14.7 g/dL (14.1-18.0); Lymphocytes # 1.4 K/mm3 (0.7-4.5); Lymphocytes % 9.1 % (10-50); Mean Corpuscular HGB Conc 32.8 g/dL (31.8-35.4); Mean Corpuscular Hemoglobin 28.2 pg (27.0-31.2); Mean Corpuscular Volume 86.1 fl (80-94); Mean Platelet Volume 8.7 fl (7.4-10.4); Monocytes # 0.8 K/mm3 (0.1-1.0); Monocytes % 5.3 % (1.7-9.3); Neutrophils # 12.8 K/mm3 (1.8-7.8); Neutrophils % 84.9 % (37.0-80.0); Platelet Count 251 K/mm3 (142-424); Red Blood Count 5.19 M/mm3 (4.60-6.20); Red Cell Distribution Width 14.4 % (11.5-17.5); White Blood Count 15.1 K/mm3 (4.8-10.8)
[2022-12-09 06:15] LABS: Anion Gap 15.9 mEq/L (5-15); Blood Urea Nitrogen 18 mg/dl (9-20); Calcium 7.9 mg/dl (8.4-10.2); Carbon Dioxide 26 mmol/L (22.0-30.0); Chloride 99 mmol/L (98-107); Creatinine Clearance Estimated 113 mL/min (50-200); Estimated Glomerular Filt Rate 70 ml/min (>60); GFR (African American) 85 ML/MIN (>60); Glucose 212 mg/dl (74-100); Potassium 4.9 mmoL/L (3.5-5.1); Sodium 136 mmol/L (136-145)
[2022-12-09 06:24] LABS: MANUAL DIFFERENTIAL MANUAL DIFFERENTIAL (MANUAL DIFF)
[2022-12-09 06:33] LABS: PTT Heparin (inpatient only) 32.7 Seconds (23.6-34.0)
--- NOTE | 2022-12-09 06:37 | PC.WOUNDNOTE ---
0600- Thigh and calf measurements taken at this time, unchanged from previous measurements, left foot remains cold with diminished pulses, mottling has slightly increased on all toes, Cassius at bedside notified at this time.
--- NOTE | 2022-12-09 07:26 | PC.NURSE ---
0641- Spoke with Dr Cornell and notified that patients leg was still cold, looked more swollen, and toes were more mottled.
--- NOTE | 2022-12-09 07:27 | PC.NURSE ---
0710- Penny Sage and Mine Hernandez at bedside, looked at patients left leg together. Penny Sage states she will notify Dr Cornell that LLE looks worse.
--- NOTE | 2022-12-09 07:28 | PC.NURSE ---
0643- 4000 unit bolus of heparin given per pharmacy order and heparin drip titrated to 1300 units/hr-26ml/hr.
--- NOTE | 2022-12-09 08:16 | PC.NURSE ---
0710 prior to start of bedside report Penny Sage RN and Mine Brothers RN were at bedside with Michelle Hamilton RN assessing/evaluating pt condition 0736 Per Penny Sage Rn in airport maintenance laborer, after updating Dr Cornell on pt changes/condition heparin and TPA need to be stopped. [address] Ngoc Cornell notified him of increase in size and tautness or left thigh. L thigh circumference 21.5 inches, left calf 16 inches. ASSISTANT MANAGER PT pulse dopplerable on merna feet. DPA pulse unable to be dopplered. left foot dusky in color cap refill noted to be < 3 sec
[2022-12-09 08:17] LABS: Lymphocytes % 8 % (10-50); Monocytes % 3 % (2-9); Neutrophils % 89 % (42-76); Platelet Estimate Normal; Total Cells Counted 100
[2022-12-09 08:18] LABS: RBC Morphology Normal
[2022-12-09 08:27] LABS: Creatine Kinase 87 U/L (55-170)
--- NOTE | 2022-12-09 08:41 | PC.NURSE ---
increase in size and tautness of left thigh noted to differ from report of initial size and markings on pt leg. L thigh circumference 21.5 inches, left calf 16 inches. CABLE DRILLER pulse dopplerable on merna feet. DPA pulse unable to be dopplered. left foot dusky in color cap refill noted to be < 3 sec. pt states that his leg does not feel like his own.
[2022-12-09 08:44] LABS: Lactic Acid 1.1 mmol/L (0.7-2.1)
--- NOTE | 2022-12-09 09:02 | PC.NURSE ---
0900 Marito MCINTOSH in recyclable products sorter verified with Dr Cornell about aspirin and plavix. hold meds at this time r/t possible surgery at [facility]
--- NOTE | 2022-12-09 09:13 | EXP.DC.SUM ---
General Admission date:: 12/08/22 HPI HPI HPI: Mr. De Jesus is a 52-year-old male who presented to [facility] as a direct admit from the clinical lab scientist earlier today. He underwent a vascular procedure for a subacute thrombus of the left popliteal artery with no significant distal flow. The procedure was partially successful with a bare metal stent deployment in the proximal and mid and distal popliteal artery. He has been placed on Alteplase and Heparin overnight and the extremity will be monitored. It is marked at 20 at the thigh and 15 at the calf. The plan is to go back to the clinical lab scientist again in the morning. He is seen following the surgery, is groggy, but answers questions appropriately. He verbalizes understanding to the plan of care. Hospital Course Hospital Course Hospital Course: Patient was admitted from [facility] following subacute thrombus of the left popliteal artery. Underwent partial successful thrombectomy with bare-metal stent deployment in the left popliteal artery. Alteplase and heparin started overnight. Patient having distention and paresthesias of his thigh and calf, concerned for continued ischemia and compartment syndrome. contacted for emergent transfer by interventional cardiology and accepted patient of preop. Will discharge on heparin 1500u/hr Exam Data for Last 24 hours Vital signs and Labs for Last 24 Hours: Temp Pulse Resp BP Pulse Ox 97.6 F 115 H 18 124/97 H 95 12/09/22 07:55 12/09/22 09:00 12/09/22 09:00 12/09/22 09:00 12/09/22 09:00 Laboratory Results - last 24 hr 12/08/22 12:54: WBC 10.5, RBC 5.80, Hgb 16.3, Hct 49.2, MCV 84.9, MCH 28.1, MCHC 33.2, RDW 14.4, Plt Count 215, MPV 8.8, Neut % (Auto) 76.2, Lymph % (Auto) 17.1, [place] % (Auto) 4.2, Eos % (Auto) 1.9, Baso % (Auto) 0.6, Neut # (Auto) 8.0 H, Lymph # (Auto) 1.8, [place] # (Auto) 0.4, Eos # (Auto) 0.2, Baso # (Auto) 0.1 12/08/22 12:54: Sodium 136, Potassium 4.0, Chloride 95 L, Carbon Dioxide 29, Anion Gap 16.0 H, BUN 22 H, Creatinine 1.10, Estimated Creat Clear 112, Estimated GFR 70, Est GFR ( Amer) 85, Glucose 276 H, Calcium 8.6 12/08/22 12:54: Hemoglobin A1c 7.4 H 12/08/22 15:13: Activated Clotting Time 230 H* 12/08/22 18:27: APTT 155.0 H* 12/08/22 21:58: POC Glucose 225 H 12/08/22 22:00: APTT 47.1 H 12/08/22 23:35: SARS-CoV-2 (PCR) Not detected, Influenza A Untype (PCR) Not detected, Influenza Type B (PCR) Not detected 12/09/22 05:30: APTT 32.7 12/09/22 05:30: WBC 15.1 H D, RBC 5.19, Hgb 14.7, Hct 44.7, MCV 86.1, MCH 28.2, MCHC 32.8, RDW 14.4, Plt Count 251, MPV 8.7, Neut % (Auto) 84.9 H, Lymph % (Auto) 9.1 L, [place] % (Auto) 5.3, Eos % (Auto) 0.4, Baso % (Auto) 0.4, Neut # (Auto) 12.8 H, Lymph # (Auto) 1.4, [place] # (Auto) 0.8, Eos # (Auto) 0.1, Baso # (Auto) 0.1, Total Counted 100, Neutrophils % (Manual) 89 H, Lymphocytes % (Manual) 8 L, Monocytes % (Manual) 3, Platelet Estimate Normal, RBC Morphology Normal 12/09/22 05:30: Sodium 136, Potassium 4.9 D, Chloride 99, Carbon Dioxide 26, Anion Gap 15.9 H, BUN 18, Creatinine 1.10, Estimated Creat Clear 113, Estimated GFR 70, Est GFR ( Amer) 85, Glucose 212 H D, Calcium 7.9 L 12/09/22 05:30: Total Creatine Kinase 87 12/09/22 05:55: POC Glucose 202 H 12/09/22 08:34: Lactate 1.1 I & O for Last 24 hours: Intake & Output 0512/07/22 12/08/22 12/09/22 23:59 23:59 23:59 23:59 Intake Total 663 / 663 Output Total 800 / 800 750 / 750 Balance -800 / -800 -87 / -87 Weight 101.984 kg 104.071 kg Constitutional Comments: sedate, mild distress *Routine HEENT Exam Head: Present normocephalic Eye: Present EOMI and PERRL ENT: Present mucous membranes moist *Routine Neck Exam Neck: Present supple; Absent lymphadenopathy *Routine Respiratory Exam Respiratory: Present CTA bilaterally *Routine Cardiovascular Exam Cardiovascular: Present RRR *Routine Abdominal Exam Abdominal: Present soft and normoactive bowel sounds; Absent tenderness *Routine Extremities
--- NOTE | 2022-12-09 09:29 | PC.NURSE ---
Addendum entered by Kacey Schwartz RN 12/09/22 10:23: 0940 bed control called with bed assignment. CVICU 10th floor room 139. call report to [phone] called report to Marilyn Crook called and notified [facility] of transport. Original Note: 0855 notified by bed control pt is to be transferred to Pre-op call report to [phone] called report to Irais in preop, during report Irais stated she was notified that pt is no longer going to be transferred to pre-op. sTated that bed control will call with another number for report. 0915 bed control called and stated that pt is to be transferred to ER. call report to [phone] called report to Heather Smith Rn in ER. during report notified Heather that pt had a femoral sheath in place. Heather states that femoral sheaths are not accepted in the ER. Heather states that she will call [facility] back after clarifying location of pt. 0934 Heather in ER at called back and states that bed control will call with new bed location and number for report.
--- NOTE | 2022-12-09 09:34 | HMH.PHAHEP ---
[facility] Pharmacy Heparin Dosing Demographic Data Admission date:: 12/08/22 Date: 12/09/22 Time: 09:35 Allergies Allergy/AdvReac Type Severity Reaction Status Date / Time No Known Allergies Allergy Verified 12/07/22 13:25 Height: 1.73 m Weight: 104.071 kg Indication Medication therapy:: Heparin Current Indications:: MD STARTED LOW DOSE - PAD Current Active Problems (Updated 12/08/22 @ 20:25 by Cassius Ayala DNP) Hyperglycemia (Acute) Thrombosis of left popliteal artery (Acute) CVA?: No Bleeding problem?: No Kidney disease?: No MN?: No Desired PTT range:: 50-75 seconds Labs Anticoagulation Lab Results:: 12/08/22 12/09/22 12:54 05:30 Hgb 16.3 14.7 Hct 49.2 44.7 Plt Count 215 251 Monitoring Dose Monitor 1: Date: 12/08/22 Time: 16:12 PTT Result:: NO BASELINE OBTAINED, DRIP STARTED IN ORTHOTIC/PROSTHETIC PRACTITIONER BY DR HARLEY Infusion Rate:: MD BOLUSED 10,000 UNITS HEPARIN IV ONCE AND BEGAN DRIP AT 1000 UNITS/HOUR = 20 ML/HOUR. Dose Monitor 2: Date: 12/08/22 Time: 18:27 PTT Result:: 155 SECONDS Infusion Rate:: HEPARIN DRIP RATE DECREASED TO 700 UNITS/HOUR = 14 ML/HOUR Dose Monitor 3: Date: 12/08/22 Time: 22:00 PTT Result:: 47.1 SECONDS Infusion Rate:: INCREASED HEPARIN DRIP RATE TO 900 UNITS/HOUR = 18 ML/HOUR, NO BOLUS GIVEN Dose Monitor 4: Date: 12/09/22 Time: 05:30 PTT Result:: 32.7 SECONDS Infusion Rate:: INCREASED HEPARIN DRIP RATE TO 1300 UNITS/HOUR = 26 ML/HOUR AND BOLUS 4000 UNITS HEPARIN IV ONCE. Comment:: PATIENT BEING TRANSFERRED TO CVICU AT FOR EMERGENT SURGERY. PTT WAS SCHEDULED FOR 1230 BUT PATIENT TRANSFERRED PRIOR TO THAT. Core Measures Is INR > or = 2 at discharge?: No Most Recent Labs:: Laboratory Results - last 24 hr 12/08/22 12:54: WBC 10.5, RBC 5.80, Hgb 16.3, Hct 49.2, MCV 84.9, MCH 28.1, MCHC 33.2, RDW 14.4, Plt Count 215, MPV 8.8, Neut % (Auto) 76.2, Lymph % (Auto) 17.1, [place] % (Auto) 4.2, Eos % (Auto) 1.9, Baso % (Auto) 0.6, Neut # (Auto) 8.0 H, Lymph # (Auto) 1.8, [place] # (Auto) 0.4, Eos # (Auto) 0.2, Baso # (Auto) 0.1 12/08/22 12:54: Sodium 136, Potassium 4.0, Chloride 95 L, Carbon Dioxide 29, Anion Gap 16.0 H, BUN 22 H, Creatinine 1.10, Estimated Creat Clear 112, Estimated GFR 70, Est GFR ( Amer) 85, Glucose 276 H, Calcium 8.6 12/08/22 12:54: Hemoglobin A1c 7.4 H 12/08/22 15:13: Activated Clotting Time 230 H* 12/08/22 18:27: APTT 155.0 H* 12/08/22 21:58: POC Glucose 225 H 12/08/22 22:00: APTT 47.1 H 12/08/22 23:35: SARS-CoV-2 (PCR) Not detected, Influenza A Untype (PCR) Not detected, Influenza Type B (PCR) Not detected 12/09/22 05:30: APTT 32.7 12/09/22 05:30: WBC 15.1 H D, RBC 5.19, Hgb 14.7, Hct 44.7, MCV 86.1, MCH 28.2, MCHC 32.8, RDW 14.4, Plt Count 251, MPV 8.7, Neut % (Auto) 84.9 H, Lymph % (Auto) 9.1 L, [place] % (Auto) 5.3, Eos % (Auto) 0.4, Baso % (Auto) 0.4, Neut # (Auto) 12.8 H, Lymph # (Auto) 1.4, [place] # (Auto) 0.8, Eos # (Auto) 0.1, Baso # (Auto) 0.1, Total Counted 100, Neutrophils % (Manual) 89 H, Lymphocytes % (Manual) 8 L, Monocytes % (Manual) 3, Platelet Estimate Normal, RBC Morphology Normal 12/09/22 05:30: Sodium 136, Potassium 4.9 D, Chloride 99, Carbon Dioxide 26, Anion Gap 15.9 H, BUN 18, Creatinine 1.10, Estimated Creat Clear 113, Estimated GFR 70, Est GFR ( Amer) 85, Glucose 212 H D, Calcium 7.9 L 12/09/22 05:30: Total Creatine Kinase 87 12/09/22 05:55: POC Glucose 202 H 12/09/22 08:34: Lactate 1.1 If INR was < than 2.0 why was therapy stopped?: PATIENT TRANSFERRED TO ON HEPARIN DRIP Were Heparin and Warfarin started on the same day?: No If not, why?: PATIENT TRANSFERRED TO ON HEPARIN DRIP
--- NOTE | 2022-12-09 10:27 | PC.NURSE ---
0858 called and notified EMS of transport to . pt has arterial sheath. Juan Ramon Jones checking that they are able to transport sheath. 0913 Juan Ramon Jones returned call that they are able to transport pt with arterial sheath in place. will notify EMS when pt is ready for transport. 1003 notified [facility] Jones that pt is ready for transport at this time.
--- NOTE | 2022-12-09 10:29 | PC.NURSE ---
1008 called pt brother Amor De Jesus and notified him that pt is being transferred to [facility].
--- NOTE | 2022-12-09 10:29 | PC.NURSE ---
0945 pt groin reassessed, no hematoma or bleeding noted. pt district captain pulses dopplerable, unable to locate DPA pulses bilaterally. circumference of pt thigh is 22 inches (increased from 21.5 at iniital assessment). calf circumference is 16in (unchanged from initial assessment) [address] Ngoc Salgado and dr Cortney salgado of changes in pt condition. also notified of difficulties with calling report to [facility]/receiving bed assignment. no new orders.
--- NOTE | 2022-12-09 10:33 | PC.NURSE ---
0910 per Ngoc Salgado restart heparin drip at 1500units/hr. clarified with Ngoc Salgado that pt sheath currently had nothing infusing in sheath at this time. asked him to clarifiy if pt was to have tpa drip restarted at this time. Ngoc Salgado verified with Cortney Salgado as well and stated that pt does not need tpa restarted at this time. pt only needs heparin restarted. 3 0911 heparin restarted. 911 notified pharmacy that ngoc salgado wants to restart heparin drip at 1500units/hr.
--- NOTE | 2022-12-09 11:17 | PC.NURSE ---
1110 pt transferred to care of [facility] Kacey Blount and Mehnaz Blount
== END 2022-12-09 11:15 | disposition short-term general hospital (02) | DRG 271 ==
LOC: 2ND 12-09 00:03
PROVIDERS: Nurse Practitioner Family; Student in an Organized Health Care Education/Training Program; Admitting Provider Internal Medicine; PCP Emergency Medicine; Referring Provider Internal Medicine; Visit Provider Internal Medicine
PROC: 04CU3ZZ Extirpation of Matter from Left Peroneal Artery, Percutaneous Approach (ICD-10-PCS; principal; 2022-12-08 12:00)
DX: I74.3 Embolism and thrombosis of arteries of the lower extremities (principal); T79.A22A Traumatic compartment syndrome of left lower extremity, initial encounter; I70.222 Atherosclerosis of native arteries of extremities with rest pain, left leg; E78.5 Hyperlipidemia, unspecified; I10 Essential (primary) hypertension; E03.9 Hypothyroidism, unspecified; F17.210 Nicotine dependence, cigarettes, uncomplicated; R73.9 Hyperglycemia, unspecified; X58.XXXA Exposure to other specified factors, initial encounter; I77.1 Stricture of artery
CPT/HCPCS: 36415; 37184; 37224; 37226; 37228; 80048; 82550; 82962; 83036; 83605; 85007; 85025; 85347; 85730; 87636; 99152; 99153; C1725; C1766; C1769; C1776; C1876; C1894; C9803; J1644; J2997; Q9967; U0003; U0005

== ENCOUNTER → 2023-03-13 13:07 | Outpatient (CLI) | payer BC, SELFPAY ==
[2023-03-13 12:57] LABS: Basophils # 0.1 K/mm3 (0-0.2); Basophils % 0.6 % (0.1-2.0); Eosinophils # 0.2 K/mm3 (0.0-0.4); Eosinophils % 2.1 % (0.1-12.0); Hematocrit 46.6 % (42.0-52.0); Hemoglobin 15.3 g/dL (14.1-18.0); Lymphocytes % 28.6 % (10-50); Mean Corpuscular HGB Conc 32.8 g/dL (31.8-35.4); Mean Corpuscular Hemoglobin 27.5 pg (27.0-31.2); Mean Corpuscular Volume 83.8 fl (80-94); Mean Platelet Volume 11.1 fl (7.4-10.4); Monocytes # 0.5 K/mm3 (0.1-1.0); Monocytes % 6.9 % (1.7-9.3); Neutrophils # 4.4 K/mm3 (1.8-7.8); Neutrophils % 61.9 % (37.0-80.0); Platelet Count 190 K/mm3 (142-424); Red Blood Count 5.56 M/mm3 (4.60-6.20); Red Cell Distribution Width 14.5 % (11.5-17.5); White Blood Count 7.1 K/mm3 (4.8-10.8)
[2023-03-13 13:36] LABS: Hemoglobin A1C 6.8 % (4.0-6.0)
[2023-03-13 13:48] LABS: Alanine Aminotransferase 35 U/L (12-78); Albumin Level 3.9 g/dl (3.5-5.0); Albumin/Globulin Ratio 1.2 (1.1-1.8); Alkaline Phosphatase 92 U/L (38-126); Anion Gap 15.4 mEq/L (5-15); Aspartate Amino Transferase 26 U/L (17-59); Bilirubin,Total 0.2 mg/dl (0.2-1.3); Blood Urea Nitrogen 18 mg/dl (9-20); Calcium 9.2 mg/dl (8.4-10.2); Carbon Dioxide 23 mmol/L (22.0-30.0); Chloride 105 mmol/L (98-107); Chol/HDL Ratio 7.7 (1-3.5); Cholesterol 223 mg/dl (140-200); Estimated Glomerular Filt Rate 88 ml/min (>60); GFR (African American) 107 ML/MIN (>60); Globulin 3.2 g/dL (1.3-3.2); Glucose 178 mg/dl (74-100); HDL Cholesterol 29 mg/dl (40-60); Potassium 4.4 mmoL/L (3.5-5.1); Sodium 139 mmol/L (136-145); Total Protein,Serum 7.1 g/dl (6.3-8.2); Triglycerides 325 mg/dl (30-150); VLDL Cholesterol 65 mg/dL (0-40)
[2023-03-13 13:59] LABS: Direct LDL Cholesterol 131.74 mg/dL (100-129)
[2023-03-13 14:05] LABS: T4 (Thyroxine) 7.5 ug/dl (5.53-11.0)
[2023-03-14 08:18] LABS: Testosterone,Total 167 ng/dL (264-916)
== END ==
PROVIDERS: PCP Physician Assistant; Visit Provider Physician Assistant
DX: R73.9 Hyperglycemia, unspecified (principal); E03.9 Hypothyroidism, unspecified; E29.1 Testicular hypofunction
CPT/HCPCS: 80053; 80061; 83036; 84403; 84436; 84443; 85025

== ENCOUNTER 2023-04-14 08:00 | Outpatient (RCR) | payer BC, SELFPAY | END 2023-04-14 08:05 | disposition home or self-care (01) | LOC: OT 08:00 | PROVIDERS: PCP Physician Assistant; Visit Provider Physical Medicine & Rehabilitation | DX: S88.112A Complete traumatic amputation at level between knee and ankle, left lower leg, initial encounter (principal) | CPT/HCPCS: 97165; 97530 ==

== ENCOUNTER 2023-04-14 08:02 | Outpatient (RCR) | payer BC, SELFPAY | END 2023-04-14 09:30 | disposition home or self-care (01) | LOC: PT 08:02 | PROVIDERS: PCP Physician Assistant; Visit Provider Physical Medicine & Rehabilitation | DX: S88.112A Complete traumatic amputation at level between knee and ankle, left lower leg, initial encounter (principal) | CPT/HCPCS: 97163 ==

== ENCOUNTER 2023-08-03 20:04 | Outpatient (CLI) | payer BC, SELFPAY ==
[2023-08-03 19:04] LABS: Basophils # 0.1 K/mm3 (0-0.2); Basophils % 0.6 % (0.1-2.0); Eosinophils # 0.2 K/mm3 (0.0-0.4); Eosinophils % 1.9 % (0.1-12.0); Hematocrit 48.5 % (42.0-52.0); Hemoglobin 16.3 g/dL (14.1-18.0); Lymphocytes # 2.1 K/mm3 (0.7-4.5); Lymphocytes % 26.5 % (10-50); Mean Corpuscular HGB Conc 33.6 g/dL (31.8-35.4); Mean Corpuscular Hemoglobin 29.3 pg (27.0-31.2); Mean Corpuscular Volume 87.3 fl (80-94); Mean Platelet Volume 11.2 fl (7.4-10.4); Monocytes # 0.5 K/mm3 (0.1-1.0); Monocytes % 6.4 % (1.7-9.3); Neutrophils # 5.2 K/mm3 (1.8-7.8); Neutrophils % 64.6 % (37.0-80.0); Platelet Count 226 K/mm3 (142-424); Red Blood Count 5.56 M/mm3 (4.60-6.20)
[2023-08-03 19:18] LABS: Alanine Aminotransferase 75 U/L (12-78); Albumin Level 4.1 g/dl (3.5-5.0); Albumin/Globulin Ratio 1.6 (1.1-1.8); Alkaline Phosphatase 109 U/L (38-126); Anion Gap 15.6 mEq/L (5-15); Aspartate Amino Transferase 46 U/L (17-59); Bilirubin,Total 0.3 mg/dl (0.2-1.3); Blood Urea Nitrogen 17 mg/dl (9-20); Carbon Dioxide 22 mmol/L (22.0-30.0); Chloride 105 mmol/L (98-107); Chol/HDL Ratio 6.2 (1-3.5); Cholesterol 187 mg/dl (140-200); Estimated Glomerular Filt Rate 63 ml/min (>60); GFR (African American) 76 ML/MIN (>60); Globulin 2.5 g/dL (1.3-3.2); Glucose 174 mg/dl (74-100); HDL Cholesterol 30 mg/dl (40-60); Potassium 4.6 mmoL/L (3.5-5.1); Sodium 138 mmol/L (136-145); Total Protein,Serum 6.6 g/dl (6.3-8.2); Triglycerides 276 mg/dl (30-150); VLDL Cholesterol 55 mg/dL (0-40)
[2023-08-03 19:29] LABS: Direct LDL Cholesterol 108.35 mg/dL (100-129)
[2023-08-03 19:49] LABS: 25-OH Vitamin D, Total 32.3 ng/mL (30-100)
[2023-08-03 20:22] LABS: Hemoglobin A1C 7.2 % (4.0-6.0); Thyroid Stimulating Hormone 3.19 uIU/mL (0.465-4.68)
== END 2023-08-03 23:59 ==
LOC: LAB.DROPOF 20:05
PROVIDERS: PCP Physician Assistant; Visit Provider Physician Assistant
DX: E11.9 Type 2 diabetes mellitus without complications (principal); E66.9 Obesity, unspecified; Z68.35 Body mass index [BMI] 35.0-35.9, adult; Z79.899 Other long term (current) drug therapy
CPT/HCPCS: 80053; 80061; 82306; 83036; 84443; 85025

== ENCOUNTER 2023-09-26 16:00 | Outpatient (RCR) | payer BC, SELFPAY | END 2023-09-26 17:20 | disposition home or self-care (01) | LOC: PT 16:00 | PROVIDERS: PCP Physician Assistant; Visit Provider Internal Medicine | DX: Z89.612 Acquired absence of left leg above knee (principal); I82.432 Acute embolism and thrombosis of left popliteal vein | CPT/HCPCS: 97110; 97112; 97116; 97163; 97164; 97530; 97535 ==

== ENCOUNTER 2023-10-04 14:59 | Outpatient (POV) | payer BC, SELFPAY ==
--- NOTE | 2023-10-04 15:07 | EXP.PAIN.OV ---
HPI Data of Consult Patient: new to practice Consult date: 10/04/23 Requesting Physician: Steph Reyes APRN Primary Care Provider: BHARAT Up Consult Narrative Reason for consult: Low back pain History of present illness: Mr. De Jesus is a 53 year old male who presents today as a new patient. He is a referral from Kandi Dave's office. Today he rates his pain an 8 out of 10. Patient states his pain is only in his low back that is more prominent on the right than the left. He states this is been going on for years and progressively worsened over time. He describes it as a constant aching, throbbing sensation that is worse with sitting or standing and walking. He does state that he has to stop and lay down to get any relief. He does also state with his history of having the lower left leg amputated that he does still have some phantom pain. Patient has been going to physical therapy with this and feels like that he may get better improvement if he can get some decreased pain in his overall back symptoms. Patient denies any radiating symptoms into his legs. He does state years ago he ended up having back surgery to do a discectomy. He states that he also has a history of right SI issues however this is not anything currently going on. Patient states that he has been to Dr. Rodriguez who at this time was only recommending more conservative treatment. Patient denies any prior injection history. He is interested in any help we may be able to provide.he does state the pain interferes with his ability perform activities of daily living such as cooking and cleaning. He does often notice more problems when he is bending or twisting. patient has been on tramadol in the past from an outside provider and is on testosterone therapy. Patient does have a significant heart history. his Dex has been reviewed and is appropriate. CC: Steph Reyes APRN [facility] Disclaimer: The information contained in this section may have been updated after the patient was seen, as this information can be updated by other users. Medical History (Updated 10/04/23 @ 15:10 by Steph Reyes APRN) Uses prosthesis Arterial thrombosis HTN (hypertension) HLD (hyperlipidemia) Atypical angina Abnormal cardiovascular stress test Tobacco dependence syndrome Abnormal echocardiogram Abnormal EKG MRSA (methicillin resistant staph aureus) culture positive Hypothyroidism BMI 31.0-31.9,adult Surgical History (Updated 08/14/23 @ 11:33 by Rangel Conteh RN) S/P AKA (above knee amputation) Family History (Updated 10/04/23 @ 15:32 by Alondra Wood RN) Other No significant family history Social History Smoking Status: Current some day smoker alcohol intake: never substance use type: denies use current occupational status: other Travel in the last 8 weeks: None housing: house current occupational exposures/hazards: No Review of Systems Review of Systems Review of systems:: pertinent systems reviewed and negative unless documented below Review of systems (narrative): Review of Systems: General: No recent weight changes, no fever, no sleep disturbances Respiratory: No cough, no shortness of air, no recurring pulmonary infections Cardiovascular/peripheral vascular: No chest pain, no palpitations, no edema, no shortness of breath Gastrointestinal: No new onset incontinence, normal bowel movements reported Genitourinary: No new onset incontinence Musculoskeletal: Low back pain Psychiatric: [Normal mood/affect] Neurological: [Denies weakness in extremities], [denies balance issues] Meds Home Medications and Allergies Home Medications Medication Instructions Recorded Confirmed Type aspirin 81 mg tablet,delayed 81 mg PO DAILY 01/31/23 08/14/23 History release (Adult Low Dose Aspirin) apixaban 5 mg tablet (Eliquis) 5 mg PO BID 90 days #180 tabs 03/13/23 08/14/23 Rx metoprolol succinate 25 mg 12.5 mg (1/2 x 25 mg) PO DAILY 03/13/23 08/14/23 Rx tablet,extended release 24 hr takes half a tablet 90 days #45 tabs testosterone 10 mg/0.5 1 pump transdermal DAILY #60 grams 06/28/23 08/14/23 Rx gram/actuation transdermal gel pump lisinopril 2.5 mg tablet See Rx Instructions .Route 07/07/23 08/14/23 Rx .COMPLEX #30 tabs alcohol swabs 1 pad topical TID #100 ea 08/03/23 08/14/23 Rx blood sugar diagnostic (Blood #100 ea 08/03/23 08/14/23 Rx Glucose Test strips) blood-glucose meter (Blood Glucose #1 ea 08/03/23 08/14/23 Rx Monitoring kit) lancets 28 gauge (Bullseye Mini #100 ea 08/03/23 08/14/23 Rx Safety Lancets) tirzepatide 2.5 mg/0.5 mL 2.5 mg (0.5 mL) SQ WEEKLY 4 weeks 08/03/23 08/14/23 Rx subcutaneous pen injector #2 mL (Mounmarinaro) rosuvastatin 5 mg tablet See Rx Instructions .Route 09/15/23 Rx .COMPLEX #30 tabs New Prescriptions to Start Prescriptions: Allergies Allergy/AdvReac Type Severity Reaction Status Date / Time No Known Allergies Allergy Verified 08/14/23 10:47 Objective Narrative: Physical Exam: General: Alert and oriented x3, no acute distress, pleasant and cooperative Lungs: Respirations even and unlabored, symmetrical chest expansion Eyes: PERRL Musculoskeletal: Flexion and extension of lumbar [spine] somewhat guarded secondary to pain, [antalgic gait noted] positive Kemps test Neurological: Speech clear, no gross sensory deficit Additional findings Additional findings: FINAL REPORT CLINICAL HISTORY: Low Back Pain LEFT FOOT PAIN ON THE TOP , NUMBNESS IN TOES THROBBING SENSATION IN LEG COMPARISON: None FINDINGS: Multiplanar MR imaging of the lumbar spine was performed without contrast. On the sagittal T2-weighted images, disc degeneration is seen at several levels. The vertebral alignment is normal. There are mild endplate changes at several levels. Several hemangiomas are noted. There is no evidence of fracture. No bony mass is identified. The conus has an unremarkable appearance. L1-2: An annular bulge is present. Right foraminal disc protrusion. Mild right neural foraminal narrowing. L2-3: There is no significant canal stenosis or neural foraminal narrowing. L3-4: There is no significant canal stenosis or neural foraminal narrowing. L4-5: An annular bulge is present. Small central disc protrusion. Mild bilateral neural foraminal narrowing. L5-S1: Annular disc bulge, facet arthropathy, and osteophytes. Central disc protrusion contacts the S1 nerve roots. Moderate bilateral neural foraminal narrowing. IMPRESSION: Multilevel degenerative disc disease and spondylosis as described with disc protrusions as above.. Reviewed, Interpreted and Dictated by Celestino Hodges III, MD Transcribed by Rosalva Francois Authenticated and [facility] Assessment and Plan *Assessment and plan (1) Lumbar degenerative disc disease: Status: Acute Category: Medical Code(s): M51.36 - Other intervertebral disc degeneration, lumbar region (2) Lumbar facet arthropathy: Status: Acute Category: Medical Code(s): M47.816 - Spondylosis without myelopathy or radiculopathy, lumbar region (3) Lumbar spondylosis: Status: Acute Category: Medical Code(s): M47.816 - Spondylosis without myelopathy or radiculopathy, lumbar region Plan Patient is experiencing significant pain throughout his low back with limited range of motion and a positive Kemps test. Patient's lumbar imaging did show multilevel lumbar facet arthropathy and spondylosis. I have discussed with the patient due to his assessment findings and MRI that I would recommend the lumbar medial branch block. Risk and benefits of this injection were explained to the patient and he would like to proceed forward with this plan of care. Patient is on Plavix blood thinner and we will reach out to the Marisela Tristan's office to confirm he can stop this medication prior to this injection patient is on this for history of blood clots which ultimately led to why he had to have his left lower extremity amputated. We will schedule the patient for a lumbar medial branch block bilaterally L4-L5 and L5-S1 under fluoroscopy. Patient has tried and failed conservative therapy. I have also discussed with patient if he has significant improvement with this injection we will plan on repeating it at a later date with the plan to proceed forward with a lumbar RFA later. Patient has been instructed to contact the clinic with any concerns before the next appointment. Dr. Kern has reviewed this note and agrees with this plan of care. This note was dictated using voice recognition software and make contain errors or omissions.
[2023-10-04 15:32] VITALS: BP 112/73; PULSE 120; RESP 18; TEMP 36.6; O2SAT 98; BMI 34.9
== END 2023-10-04 23:59 ==
LOC: SC.PAIN 14:59
PROVIDERS: PCP Physician Assistant; Visit Provider Nurse Practitioner Family
DX: M51.36 Other intervertebral disc degeneration, lumbar region (principal); M47.816 Spondylosis without myelopathy or radiculopathy, lumbar region; Z89.612 Acquired absence of left leg above knee
CPT/HCPCS: 99202; G0463

== ENCOUNTER 2023-10-31 10:45 | Day surgery (SDC) | payer BC, SELFPAY ==
[2023-10-31 11:05] VITALS: BP 149/89; PULSE 103; RESP 18; O2SAT 93; BMI 34.9
[2023-10-31 11:31] VITALS: BP 170/91; PULSE 110; RESP 18; O2SAT 94
[2023-10-31] MEDS: methylPREDNISolone ACETATE 80MG/ML VIAL 80 MG (11:31)
[2023-10-31] MEDS: BUPIVACAINE 0.25% 10ML INJ 25 MG IJ (11:31)
[2023-10-31] MEDS: LIDOCAINE 1% 5ML PF VIAL 5 ML (11:31)
[2023-10-31 11:32] VITALS: BP 170/91; PULSE 110; RESP 18; O2SAT 94
[2023-10-31 11:44] VITALS: BP 157/102; PULSE 105; RESP 18; O2SAT 93
--- NOTE | 2023-10-31 11:45 | EXP.PAIN.PRO ---
Procedure Date: 10/31/23 Time: 11:30 Anesthesiologist:: Joseph Hilton CRNA Complications:: None Pre-procedure Diagnosis:: Degenerative disc lumbar spine multilevels. Lumbar radiculopathy. Lumbar facet arthropathy. Lumbar spondylosis Post-procedure Diagnosis:: Same. Indications for Procedure:: Patient is a very pleasant 53-year-old male comes our clinic today for his initial round of bilateral lumbar medial branch blocks/facet injections L4-5, L5-S1 level. Patient describes low lumbar back pain as constant, dull, aching. Patient reports having difficulty with flexion, extension, left and right rotation of the lumbar spine. He rates his pain 8/10. Procedure Details:: Informed consent was obtained and the risk and benefits of the procedure was explained to the patient. Patient was taken to the procedure room where noninvasive monitors were placed, including noninvasive blood pressure cuff as well as pulse oximeter. The area over the lumbar spine was cleansed using chlorhexidine as a cleansing solution. I anesthetized the skin and subcutaneous tissues with 1% Lidocaine. I placed 22-gauge spinal needles into the facet joint/ medial branches of [L3-L4, L4-L5, and L5-S1] bilaterally. Needle placement was confirmed with fluoroscopy. After confirmation of needle placement, each site was injected with 1 mL of 1% lidocaine and 0.25 % Marcaine and 10 mg of Depo-Medrol. A total of 80 mg of depo medrol was used for bilateral medial branch blocks of [L3-L4, L4-L5, and L5-S1] bilaterally. Patient tolerated the procedure without difficulty. There were no complications. Plan and Disposition:: Patient was discharged without incident.
== END 2023-10-31 11:44 | disposition home or self-care (01) ==
PROVIDERS: PCP Physician Assistant; Visit Provider Nurse Anesthetist, Certified Registered
DX: M47.896 Other spondylosis, lumbar region (principal); M51.16 Intervertebral disc disorders with radiculopathy, lumbar region
CPT/HCPCS: 64493; 64494; 64495; J1010

== ENCOUNTER 2023-11-15 13:38 | Outpatient (POV) | payer BC, SELFPAY ==
[2023-11-15 14:16] VITALS: BP 126/72; PULSE 93; RESP 18; TEMP 36.6; O2SAT 98; BMI 34.9
--- NOTE | 2023-11-15 14:59 | EXP.PAIN.SOA ---
[facility] Pain Management SOAP Note Subjective:: Patient is a pleasant 53-year-old male who presents today for follow-up after his first lumbar medial branch block bilaterally L4-L5 and L5-S1 on 10/31/2023. Today he rates his pain a 3 out of 10. Patient states that he did have approximately 60% improvement following this injection however it really only lasted for a couple of days. Patient does state that he is back to his baseline and that he has not done a whole lot just yet but his pain will increase with increased ambulation or activity. Patient does describe this as a chronic aching, throbbing sensation that is affecting his ability to perform activities of daily living. Patient does state that he is interested in seeing a neurosurgeon for possible surgical intervention to fix some of what is going on. Patient does also state he would like to proceed forward with his second's block in order to see if the RFA will provide significant relief. His Dex has been reviewed and is appropriate. Review of Systems: General: No recent weight changes, no fever, no sleep disturbances Respiratory: No cough, no shortness of air, no recurring pulmonary infections Cardiovascular/peripheral vascular: No chest pain, no palpitations, no edema, no shortness of breath Gastrointestinal: No new onset incontinence, normal bowel movements reported Genitourinary: No new onset incontinence Musculoskeletal: Low back pain Psychiatric: [Normal mood/affect] Neurological: [Denies weakness in extremities], [denies balance issues] Objective:: Physical Exam: General: Alert and oriented x3, no acute distress, pleasant and cooperative Lungs: Respirations even and unlabored, symmetrical chest expansion Eyes: PERRL Musculoskeletal: Flexion and extension of lumbar [spine] somewhat guarded secondary to pain, [antalgic gait noted] positive Kemps test Neurological: Speech clear, no gross sensory deficit Assessment:: 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 I have discussed with the patient that he may benefit from a repeat lumbar medial branch block. Risk and benefits were discussed with the patient and he would like to proceed forward with this plan of care. I have also discussed with the patient that I will send a referral to Dr. Mello for neurosurgery consult. I have also discussed with the patient in future that he may be a beneficial candidate of a spinal cord stimulator or pain pump trial at a later date. Risk benefits and educational handouts were given during today's visit. We will follow-up with this at future visits. I will start the patient on a 2-week trial of amitriptyline 25 mg daily. Patient will be scheduled for a lumbar medial branch block #2 bilaterally L4-L5 and L5-S1 under fluoroscopy. If he does end up getting good relief with the second block we will plan on doing the lumbar RFA at a later date. Patient has been instructed to contact the clinic with any concerns before the next appointment. Dr. Kern has reviewed this note and agrees with this plan of care. This note was dictated using voice recognition software and make contain errors or omissions. [facility] Disclaimer: The information contained in this section may have been updated after the patient was seen, as this information can be updated by other users. Medical History Uses prosthesis Arterial thrombosis HTN (hypertension) HLD (hyperlipidemia) Atypical angina Abnormal cardiovascular stress test Tobacco dependence syndrome Abnormal echocardiogram Abnormal EKG MRSA (methicillin resistant staph aureus) culture positive Hypothyroidism BMI 31.0-31.9,adult Surgical History S/P AKA (above knee amputation) Family History Other No significant family history Social History Smoking Status: Current some day smoker alcohol intake: never substance use type: denies use current occupational status: other Travel in the last 8 weeks: None housing: house current occupational exposures/hazards: No
== END 2023-11-15 23:59 | disposition home or self-care (01) ==
PROVIDERS: PCP Physician Assistant; Visit Provider Nurse Practitioner Family
DX: M47.816 Spondylosis without myelopathy or radiculopathy, lumbar region (principal); M51.36 Other intervertebral disc degeneration, lumbar region
CPT/HCPCS: 99212; G0463

== ENCOUNTER 2023-12-05 13:54 | Day surgery (SDC) | payer BC, SELFPAY ==
--- NOTE | 2023-12-05 14:25 | P.PCN_ITS ---
Procedure Date: 12/05/23 Time: 14:35 Anesthesiologist:: Joseph Hilton CRNA Complications:: None Pre-procedure Diagnosis:: Degenerative disc lumbar spine multilevels. Lumbar radiculopathy. Lumbar spondylosis. Multilevel lumbar facet arthropathy Post-procedure Diagnosis:: Same. Indications for Procedure:: Patient is a pleasant 53-year-old male comes our clinic today for round 2 of lumbar medial branch blocks/facet injections bilaterally at the L4-5, L5-S1 levels. Patient reports 60 to 80% of improvement in terms of his overall low back pain with flexion, extension, left and right rotation lasting 2 to 3 days after around one of the same injections. He rates his pain today 6/10. His main complaint is low back pain with bilateral hip and leg radicular symptoms at times. Procedure Details:: Informed consent was obtained and the risk and benefits of the procedure was explained to the patient. Patient was taken to the procedure room where noninvasive monitors were placed, including noninvasive blood pressure cuff as well as pulse oximeter. The area over the lumbar spine was cleansed using chlorhexidine as a cleansing solution. I anesthetized the skin and subcutaneous tissues with 1% Lidocaine. I placed 22-gauge spinal needles into the facet joint/ medial branches of L4-L5, and L5-S1 bilaterally. Needle placement was confirmed with fluoroscopy. After confirmation of needle placement, each site was injected with 1 mL of 1% lidocaine and 0.25 % Marcaine and 10 mg of Depo- Medrol. A total of 80 mg of depo medrol was used for bilateral medial branch blocks of L4-L5, and L5-S1 bilaterally. Patient tolerated the procedure without difficulty. There were no complications. Plan and Disposition:: Patient was discharged without incident.
[2023-12-05 14:28] VITALS: BP 139/82; BP 140/89; PULSE 100; PULSE 92; RESP 18; TEMP 36.8; O2SAT 95; O2SAT 97; O2SAT 98; BMI 34.9
[2023-12-05] MEDS: BUPIVACAINE 0.25% 10ML INJ 25 MG IJ (14:29)
[2023-12-05] MEDS: LIDOCAINE 1% 5ML PF VIAL 5 ML (14:29)
[2023-12-05] MEDS: methylPREDNISolone ACETATE 80MG/ML VIAL 80 MG (14:30)
[2023-12-05 14:44] VITALS: BP 135/74; PULSE 90; RESP 18; O2SAT 95
== END 2023-12-05 14:46 | disposition home or self-care (01) ==
PROVIDERS: PCP Physician Assistant; Visit Provider Nurse Anesthetist, Certified Registered
DX: M47.896 Other spondylosis, lumbar region (principal); M51.16 Intervertebral disc disorders with radiculopathy, lumbar region
CPT/HCPCS: 64493; 64494; J1010

== ENCOUNTER 2023-12-27 11:01 | Outpatient (POV) | payer BC, SELFPAY ==
[2023-12-27 11:20] VITALS: BP 124/85; PULSE 107; RESP 18; O2SAT 96; BMI 34.9
--- NOTE | 2023-12-27 12:47 | EXP.PAIN.SOA ---
[facility] Pain Management SOAP Note Subjective:: Patient is a pleasant 53-year-old male who presents today for follow-up lumbar medial branch block bilaterally L4-L5 and L5-S1 on 12/05/2023. This is his second block. Patient states that this injection did not seem to really do much. His last lumbar medial branch did provide 60% improvement however it only lasted a couple of days. Patient does state that he is back to his baseline and continues to have an aching, throbbing sensation in his back with some numbness and tingling into his lower extremities. 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 He does state the pain interferes with his ability to perform activities of daily living such as cooking and cleaning. Patient is scheduled to see Dr. Og tomorrow to follow-up on updated CT imaging. His Dex has been reviewed and is appropriate. Review of Systems: General: No recent weight changes, no fever, no sleep disturbances Respiratory: No cough, no shortness of air, no recurring pulmonary infections Cardiovascular/peripheral vascular: No chest pain, no palpitations, no edema, no shortness of breath Gastrointestinal: No new onset incontinence, normal bowel movements reported Genitourinary: No new onset incontinence Musculoskeletal: Low back pain, leg pain Psychiatric: [Normal mood/affect] Neurological: [Denies weakness in extremities], [denies balance issues] Objective:: Physical Exam: General: Alert and oriented x3, no acute distress, pleasant and cooperative Lungs: Respirations even and unlabored, symmetrical chest expansion Eyes: PERRL Musculoskeletal: Flexion and extension of lumbar [spine] somewhat guarded secondary to pain, [antalgic gait noted] Neurological: Speech clear, no gross sensory deficit Assessment:: Degenerative disc disease of lumbar spine with lumbar radiculopathy symptoms, lumbar facet arthropathy Plan:: Patient continues to experience chronic pain throughout his low back with some numbness and tingling into his lower extremities. Patient did have significant findings in his lumbar spine at the L5-S1 level but did have lumbar spinal stenosis with possible nerve root impingement. I have discussed with the patient that I would recommend we try a lumbar epidural steroid injection. Risk and benefits were discussed with patient and he would like to proceed forward with this plan of care. Patient is not on any blood thinners. Patient did state from our last visit where we tried amitriptyline that he did not really notice any significant change. Patient has tried and failed conservative therapies including oral medication, heat and ice, topicals, prior physical therapy, at home stretching exercise between injections. We will submit to insurance for the L KAVITHA and L5-S1 under fluoroscopy. Patient was counseled that if Dr. Mello has any contraindications to this injection to call our office back and let us know. Patient has been instructed to contact the clinic with any concerns before the next appointment. Dr. Kern has reviewed this note and agrees with this plan of care. This note was dictated using voice recognition software and make contain errors or omissions. [facility] Disclaimer: The information contained in this section may have been updated after the patient was seen, as this information can be updated by other users. Medical History Uses prosthesis Arterial thrombosis HTN (hypertension) HLD (hyperlipidemia) Atypical angina Abnormal cardiovascular stress test Tobacco dependence syndrome Abnormal echocardiogram Abnormal EKG MRSA (methicillin resistant staph aureus) culture positive Hypothyroidism BMI 31.0-31.9,adult Surgical History S/P AKA (above knee amputation) Family History Other No significant family history Social History Smoking Status: Current some day smoker alcohol intake: never substance use type: denies use current occupational status: other Travel in the last 8 weeks: None housing: house current occupational exposures/hazards: No
== END 2023-12-27 23:59 | disposition home or self-care (01) ==
LOC: SC.PAIN 11:02
PROVIDERS: PCP Physician Assistant; Visit Provider Nurse Practitioner Family
DX: M51.16 Intervertebral disc disorders with radiculopathy, lumbar region (principal); M47.26 Other spondylosis with radiculopathy, lumbar region
CPT/HCPCS: 99212; G0463

== ENCOUNTER 2025-01-10 10:32 | Outpatient (CLI) | payer BC, SELFPAY ==
[2025-01-10 18:34] LABS: Basophils # 0.1 K/mm3 (0-0.2); Eosinophils # 0.1 Kmm3 (0.0-0.4); Eosinophils % 1.6 % (0.1-12.0); Hematocrit 50.4 % (42.0-52.0); Immature Granulocytes # 0.04 10^3uL; Immature Granulocytes % 0.7 %; Lymphocytes # 1.9 K/mm3 (0.7-4.5); Lymphocytes % 30.9 % (10-50); Mean Corpuscular HGB Conc 33.7 g/dL (31.8-35.4); Mean Corpuscular Hemoglobin 27.8 pg (27.0-31.2); Mean Corpuscular Volume 82.4 fl (80-94); Mean Platelet Volume 12.5 fl (7.4-10.4); Monocytes # 0.6 K/mm3 (0.1-1.0); Neutrophils # 3.5 K/mm3 (1.8-7.8); Neutrophils % 56.8 % (37.0-80.0); Nucleated Red Blood Cells # 0 10^3/uL; Nucleated Red Blood Cells % 0 %; Platelet Count 106 K/mm3 (142-424); Red Blood Count 6.12 M/mm3 (4.60-6.20); Red Cell Distribution Width 13.2 % (11.5-17.5); Red Cell Distribution Width-SD 38.8 fL; White Blood Count 6.1 K/mm3 (4.8-10.8)
[2025-01-10 18:36] LABS: Creatinine,Urine Random 69 mg/dL (Not Estab.)
[2025-01-10 18:37] LABS: Microalbumin/Creatinine Ratio 97.8
[2025-01-10 18:43] LABS: Albumin Level 4.4 g/dl (3.5-5.0); Chloride 97 mmol/L (98-107)
[2025-01-10 18:44] LABS: Potassium 4.4 mmoL/L (3.5-5.1); Sodium 134 mmol/L (136-145)
[2025-01-10 18:46] LABS: Alanine Aminotransferase 36 U/L (12-78); Albumin/Globulin Ratio 1.6 (1.1-1.8); Alkaline Phosphatase 139 U/L (38-126); Anion Gap 19.4 mEq/L (5-15); Aspartate Amino Transferase 23 U/L (17-59); Bilirubin,Total 0.4 mg/dl (0.2-1.3); Blood Urea Nitrogen 23 mg/dl (9-20); Carbon Dioxide 22 mmol/L (22.0-30.0); Cholesterol 243 mg/dl (140-200); Estimated Glomerular Filt Rate 88 ml/min (>60); GFR (African American) 106 ML/MIN (>60); Globulin 2.8 g/dL (1.3-3.2); Total Protein,Serum 7.2 g/dl (6.3-8.2)
[2025-01-10 18:47] LABS: Calcium 9.4 mg/dl (8.4-10.2); Chol/HDL Ratio 7.1 (1-3.5); HDL Cholesterol 34 mg/dl (40-60)
[2025-01-10 18:58] LABS: Direct LDL Cholesterol 111.25 mg/dL (100-129)
[2025-01-10 19:02] LABS: Triglycerides 430 mg/dl (30-150)
[2025-01-10 19:03] LABS: 25-OH Vitamin D, Total 25.9 ng/mL (30-100)
[2025-01-10 19:04] LABS: Glucose 400 mg/dl (74-100)
[2025-01-10 19:18] LABS: Thyroid Stimulating Hormone 6.71 uIU/mL (0.465-4.68)
[2025-01-10 19:27] LABS: HIV Combo NEGATIVE (Negative)
[2025-01-10 19:36] LABS: Hepatitis C Ab Qual. W/ RFX NEGATIVE (Negative)
[2025-01-10 20:32] LABS: Prostate Specific Ag Screen 0.4 ng/ml (0.0-4.0)
--- OUTSIDE RECORDS SUMMARY | 2025-01-11 08:22 | XMS_ITS | Encounter Summary ---
Author Organization Healthcare Address [address] [place] [address] Care Team Providers Care Seafood Preparer Name Role Phone Armando Polanco MD Primary Care Provider [phone] Encounter Details Date Type Department Care Team ([facility] st Contact Info) Description 12/02/2022 Orders Only External Location [address] [place] [address] Anival Rabago, SENIOR UI DEVELOPER [address] [place] [address] Social History Tobacco Use Types Packs/Day Years Used Date Smoking Tobacco: Never Assessed Sex and Gender Information Value Date Recorded Sex Assigned at Not on file Legal Sex Male 7:34 PM EDT Gender Identity Not on file Sexual Orientation Not on file documented as of this encounter Plan of Treatment Not on file documented as of this encounter Procedures Procedure Name Priority Date/Time Associated Diagnosis Comments MR OUTSIDE IMAGES 12/02/2022 1:01 PM EDT documented in this encounter Results * MR transfer of outside films (12/02/2022 1:01 PM EDT) Anatomical Region Laterality Modality Magnetic Resonan ce 12/02/2022 1:01 PM EDT Anvial Rabago SENIOR UI DEVELOPER IMG MRI PROCEDURES Final Re sult documented in this encounter Visit Diagnoses Not on filedocumented in this encounter Additional Health Concerns Infection Onset Date Last Indicated Resolved Time C. difficile Rule-Out Comment:R/o test canceled per RN 12/19/2022 12/19/2022 023 10:32 AM EDT documented as of this encounter Care Teams Seafood Preparer Relationship Specialty Start Date End Date Armando Polanco MD [address] [place] [id number] PCP - General 10/15/22 documented as of this encounter
--- OUTSIDE RECORDS SUMMARY | 2025-01-11 08:23 | XMS_ITS | Encounter Summary ---
Author Organization Healthcare Address [address] [place] [address] Care Team Providers Care Dogman/Woman Name Role Phone Armando Polanco MD Primary Care Provider [phone] Encounter Details Date Type Department Care Team (Late st Contact Info) Description 12/13/2022 Lab Requisition [facility] [address] [place] [address] Yevgeniy Courtney MD [address] [address] Encounter for general adult medical examination without abnormal findings Social History Tobacco Use Types Packs/Day Years Used Date Smoking Tobacco: Former Cigarettes Q uit: 2020 Sex and Gender Information Value Date Recorded Sex Assigned at Not on file Legal Sex Male 7:34 PM EDT Gender Identity Not on file Sexual Orientation Not on file documented as of this encounter Functional Status * Calculated C-SSRS Risk Score (Lifetime/Recent) Answer Date of Assessment Author No Risk Indicated 12/13/2022 8:00 AM EDT Calvin Baird * Question Answer Date of Assessment Author 1. Wish to be (Past 1 Month) No 023 8:00 AM EDT Calvin Baird documented as of this encounter Plan of Treatment Not on file documented as of this encounter Procedures Procedure Name Priority Date/Time Associated Diagnosis Comments MULTI DRUG RESISTANCE TEST Routine 12/13/2022 2:00 PM EDT Encounter for general adult medical examination without abnormal findings documented in this encounter Results * Multi Drug Resistance Test (12/13/2022 2:00 PM EDT) Culture No growth at day 2 12/15/2022 11:57 AM EDT [facility] Swab (Nares and Sarah Rectal) 12/13/2022 2:00 PM EDT 12/13/2022 2:11 PM EDT us Yevgeniy Clinton MD LAB MICROBIOLOGY - GENERAL ORDERABLES Final Result [facility] [address] [place] [address] documented in this encounter Visit Diagnoses Diagnosis Encounter for general adult medical examination without abnormal findings documented in this encounter Additional Health Concerns Infection Onset Date Last Indicated Resolved Time C. difficile Rule-Out Comment:R/o test canceled per RN 12/19/2022 12/19/2022 023 10:32 AM EDT documented as of this encounter Care Teams Dogman/Woman Relationship Specialty Start Date End Date Armando Polanco MD [address] [place] [address] PCP - General 10/15/22 documented as of this encounter
--- OUTSIDE RECORDS SUMMARY | 2025-01-11 08:23 | XMS_ITS | Clinical Summary ---
Author Organization [facility] Address [address] 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 100 tablet 01/08/20 23 Active Additional Information Patient not taking.Reported on 02/09/2023 apixaban (Eliquis) 5 MG tablet Take 1 tablet (5 mg) by mouth 2 (two) times a day. 60 tablet 1 01/08/20 23 Active atorvastatin (Lipitor) 40 MG tablet TAKE 1 TABLET BY MOUTH AT BEDTIME FOR CHOLESTEROL Active hydrOXYzine HCl (Atarax) 25 MG tablet Take by mouth every 8 (eight) hours if needed for anxiety. 01/20/20 23 Active metoprolol succinate XL (Toprol-XL) 25 MG 24 hr tablet Take 0.5 tablets (12.5 mg) by mouth 1 (one) time each day. 01/20/20 23 Active oxyCODONE (Roxicodone) 5 MG immediate release tablet 01/20/20 23 Active testosterone cypionate (Depo-Testoste nathaniel) 200 MG/ML injection INJECT 1 ML (CC) INTRAMUSCULARLY EVERY TWO WEEKS 07/23/19 23 Active HYDROcodone-ac etaminophen ([place]) 7.5-325 MG tablet TAKE 1 TABLET BY MOUTH EVERY 4 TO 6 HOURS NEEDED FOR PAIN 04/21/20 22 Active amitriptyline (Elavil) 25 MG tablet TAKE 1 TO 2 TABLETS BY MOUTH EVERY DAY AT BEDTIME NIGHTLY 03/13/20 23 Active lisinopril 2.5 MG tablet Take 1 tablet (2.5 mg) by mouth 1 (one) time each day. 03/16/20 23 Active rosuvastatin (Crestor) 5 MG tablet Take 1 tablet (5 mg) by mouth 1 (one) time each day. 03/16/20 23 Active Ozempic, 0.25 or 0.5 MG/DOSE, 2 MG/3ML solution pen-injector INJECT 0.25MG SUBCUTANEOUSLY ONCE A WEEK FOR 4 WEEKS THEN INCREASE TO 0.5MG WEEKLY 03/16/20 23 Active testosterone (Fortesta) 10 MG/ACT (2%) gel transdermal gel pump 03/27/20 23 Active Jardiance 25 MG Take 1 tablet (25 mg) by mouth 1 (one) time each day. 04/28/20 24 Active methocarbamol (Robaxin) 500 MG tablet Take 1 tablet (500 mg) by mouth every night. 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 The patient was started back on Xarelto He was subsequently referred to a electrician apprentice powerhouse and underwent a ADOLFO on day of admission. ADOLFO showed dissection of aortic arch with arterial thrombosis and he underwent descending thoracic aorta open atherectomy with left heart bypass, diaphragm plication, ligation of ligamentum arteriosum, and bronchoscopy on September [address] Elam. 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 During bronchoscopy was noted that he had left vocal cord paralysis and will need to follow-up with ENT on October 07 1 PM. Due to his history of multiple thrombotic events hematology oncology was consulted. He had a hypercoagulable work-up from outside hospital that was negative except for elevated homocystine levels. Hematology recommended lifelong anticoagulation. Below-knee amputation of left lower extremity Overview (12/26/2022): CTA on admission with thrombosis below the L popliteal artery stent with complete occlusion of the proximal L anterior tibialis artery & partial occlusion of the proximal peroneal artery Underwent LLE catheterization of peroneal artery, open thrombectomy and four compartment fasciotomy w/ Dr. Matute on 12/09/2022 (femoral sheath removed 12/10) and subsequent left BKA on 12/14/2022 of which revealed evidence of muscular necrosis (op-note pending) - Popliteal doppler signal present s/p BKA 12/21/22, Dr. Barnett -12/21/22 Dr. Barnett 1. Thromboembolectomy left iliac artery 2. Left AKA PLAN: - Continue IV antibiotics till 12/27 - PMR and PT/OT consulted - Multimodal bowel and oral pain regimen, wean as appropriate History of DVT (deep vein thrombosis) 12/10/2022 Overview (12/26/2022): History of previous RLE DVT following a traumatic accident with where his leg was pinned by a trailer. Previously on Xarelto, has not taken in over a year. 09/2020: ADOLFO showed dissection of aortic arch with arterial thrombosis and he underwent descending thoracic aorta open atherectomy with left heart bypass Due to his history of multiple thrombotic events hematology oncology was consulted. He had a hypercoagulable work-up from outside hospital that was negative except for elevated homocystine levels. Hematology recommended lifelong anticoagulation. -Transitional to Apixaban from heparin gtt -ASA Wound infection 12/09/2022 Overview (12/19/2022): Added automatically from request for surgery [id number] Resolved Problems Problem Noted Date Diagnosed Date Resolved Date Post-operative pain 12/26/2022 02/10/20 Overview (12/26/2022): -Oxy 5mg PO Q6 -Robaxin 500mg PO q8 -Gabapentin 600mg PO TID -Senna-docusate 1 tab PO BID and Mirilax daily for bowel reg Stenosis of right femoral artery 12/20/2022 01/07/2023 Overview (12/26/2022): CTA CAP: Right Common Femoral Artery: Partially calcified atherosclerotic plaque resulting in mild to moderate stenosis. Focal dissection noted arising from the posterior aspect of the artery (series 4, image 226). -Started Apixaban Ischemia of right lower extremity 12/13/2022 12/17/2022 Overview (12/14/2022): Decreased pulses in right DP/PT Vascular aware Non-traumatic rhabdomyolysis 12/12/2022 01/07/2023 Overview (12/26/2022): Mild, CK peaked at 5900 Downtrending Lasix PRN Feeding difficulty 12/12/2022 Overview (12/23/2022): Complicated by paralyzed left diaphragm and elevated stomach FISHER EEL consulted for dysphagia evaluation: FEES 12/20/2022 no aspiration okay for reg, cc2 diet Hyperlipidemia 12/10/2022 12/10/2022 Acute respiratory failure wi th hypoxia and hypercapnia 12/10/2022 01/07/2023 Overview (12/26/2022): Intubated for OR Extubated 12/15 to HFNC, now tolerating NC Continue aggressive pulm secretion mobilization 12/21 CTA CAP: Peripheral right upper lobe ground glass opacities likely infectious or post inflammatory in nature (series 7 image 68) Pleural/Pericardial Space: No pneumothorax. No pleural effusions. No pericardial effusion. Lungs: Central airways are patent. Significant elevated left hemidiaphragm with associated marked basilar atelectasis. Mild right basal atelectasis. Discoid atelectasis in the left upper lobe. No consolidative airspace is identified. PRN CXR and nebs 96% on 2L NC Electrolyte abnormality 12/10/202212/16 Overview (12/20/2022): Replace per ICU protocol while inpatient. Leukocytosis 12/10/2022 01/07/2023 Overview (12/26/2022): Improved WBCs trending down (7.08) Tmax 37.1 Procal 1.38 from 0.32 Sputum 12/14 with MURF, BC NGTD Continue cefe till 12/27 Vanyc (completed) Flagyl (completed) Anemia associated with acute blood loss 12/10/2022 01/07/2023 Overview (12/26/2022): H/H stable (9.6, 30.8) Last transfused 1U pRBC 12/14 due to Hbg 6.6, recovered to 8 s/p transfusion. Previously transfused 3u PRBC on 12/11 Continue serial lab assessment. Consider transfusion if Hgb less than 7. May require iron, folate, B12 supplementation as appropriate. Hyperglycemia 12/10/2022 01/07/2023 Overview (12/20/2022): A1C 7.6, not on home medications previously prescribed metformin per OSH records Continue SSI and monitor for further glucose control F/u and diabetic education recommended prior to discharge SONIYA (acute kidney injury) 12/10/2022 Overview (12/14/2022): Baseline Cr unknown Cr stable C/b leg ischemia and rhabdo FENA prerenal 0.7% Improved with resuscitation Continue resuscitation, lab trends and monitor I&Os Avoid nephrotoxins, avoid NSAIDs, renally dose medications Popliteal artery thrombosis, left 12/09/2022 01/07/2023 Overview (12/26/2022): CTA on admission with thrombosis below the L popliteal artery stent with complete occlusion of the proximal L anterior tibialis artery & partial occlusion of the proximal peroneal artery Underwent LLE catheterization of peroneal artery, open thrombectomy and four compartment fasciotomy w/ Dr. Matute on 12/09/2022 (femoral sheath removed 12/10) and subsequent left BKA on 12/14/2022 of which revealed evidence of muscular necrosis Procedure(s): 12/19/22 Dr. Barnett Debridement of skin, muscle Left BKA (wound size 15 x 15 cm) 12/21/22 Dr. Barnett 1. Thromboembolectomy left iliac artery 2. Left AKA CTA CAP 12/20: Left External Iliac Artery: Concentric nonocclusive thrombus in proximal left external iliac artery resulting in moderate stenosis (series 4 image 207). Left Superficial Femoral Artery: PaSmall eccentric filling defect likely representing a noncalcified plaque with minimal to mild stenosis of the left common femoral artery (series 4 image 268) . Occluded vascular stent throughout distal SFA and extending throughout proximal popliteal vessel. PLAN: -Transition to Apixaban -ASA -Hematology consulted and signed off -Suggest at least 6 months of anticoagulation. Would defer final duration to vascular surgery. - He needs repeat Lupus anticoagulant test in the future once he is deemed safe to stop anticoagulation for 2 weeks and then obtain the test - Continue to hold STATIN while CK elevated -Consulted PMR 12/23/22 -PT/OT continue to follow 2-3x/week, acute rehab rec. Family History Medical History Relation Name Comments Diabetes Father Heart disease Father Lupus Mother Relation Name Status Comments Father Mother Social History Tobacco Use Types Packs/Day Years Used Date Smoking Tobacco: Former Cigarettes 1 25 0 09/1995 - 09/2020 Smokeless Tobacco: Never Tobacco Cessation:Counseling Given: Not Answered Alcohol Use Standard Drinks/Week Comments Not Currently 0 (1 standard drink = 0.6 oz pur e alcohol) PHQ-2 Answer Date Recorded Patient Health Questionnaire-2 Score 0 05/16/2024 CAGE ASSESSMENT Answer Date Recorded Cage unable to access Not on file 12/24/2022 Cage max number of drinks Not on file 2022 Cage Beverages a week Not on file 12/24/2022 Have you ever felt you should CUT down on your d rinking? 0 12/24/2022 Have you been ANNOYED by people criticizing your drinking? 0 12/24/2022 Have you felt GUILTY about your drinking? 0 12/24/2022 Have you had a drink first t doris in the morning ([employer]) to steady your nerves or to get rid of a hangover? 0 12/24/2022 CAGE Questionnaire Score 0 023 PHQ-2A Answer Date Recorded Patient Health Questionnaire-2 Score 1 03/27/2023 Sex and Gender Information Value Date Recorded Sex Assigned at Not on file Legal Sex Male 7:34 PM EDT Gender Identity Not on file Sexual Orientation Not on file Last Filed Vital Signs Vital Sign Reading Time Taken Comments Blood Pressure 120/87 05/16/2024 11:50 AM EDT Pulse 90 05/16/2024 11:50 AM EDT Temperature 37 C (98.6 F) 02/09/2023 8:15 AM EDT Respiratory Rate 16 03/27/2023 3:34 PM EDT Oxygen Saturation 98% 05/16/2024 11:50 AM EDT Inhaled Oxygen Concentration - - Weight 102 kg (225 lb) 05/16/2024 11:50 AM EDT Height 172.7 cm (5' 8 ) 05/16/2024 11:50 AM EDT Body Mass Index 34.21 05/16/2024 11:50 AM EDT Plan of Treatment Health Maintenance Due Date Last Done Comments [facility]-/Child/Adol SDOH Screenings 1969 [facility]- SDOH Screenings 1987 [facility]-Adult SDOH Screenings 1987 [facility]-DTaP,Tdap,and Td Vaccines (1 - Tdap) 1988 [facility]-Hepatitis B Vaccines (1 of 3 - 19+ 3-dose series) 1988 CT Colonography 2014 Colonoscopy 2014 FIT-DNA 2014 FIT 2014 FOBT 2014 Sigmoidoscopy 2014 [facility]-Colorectal Cancer Screening 2014 [facility]-Pneumococcal Vaccine: 50+ Years (1 of 1 - PCV) 2019 [facility]-Zoster Vaccines (1 of 2) 2019 [facility]-Lung Cancer Screening 12/21/20232022, 12/09/2022, 09/25/2020 [id number] Vaccine (1 - 4-25 season) 2024 [facility]-Influenza Vaccine (Season Ended) 2025 [facility]-Depression Screening 05/16/2025 05/16/2024 [facility]-Diabetes: Hemoglobin A1C Discontinued 12/10/2022, 09/24/2020 [facility]-HIV Screening Completed 12/14/2022 [facility]-Hepatitis C Screening Completed 12/14/2022, 02/2018 [facility]-Obesity Intervention Completed 024, 03/27/2023, 03/03/2023, Additional history exists HPV Vaccines Aged Out No longer eligi ble based on patient's age to complete this topic [facility]-HIB Vaccines Aged Out No longer e ligible based on patient's age to complete this topic [facility]-Hepatitis A Vaccines Aged Out No longer eligible based on patient's age to complete this topic [facility]-IPV Vaccines Aged Out No longer e ligible based on patient's age to complete this topic [facility]-Rotavirus Vaccines Aged Out No lo nger eligible based on patient's age to complete this topic Procedures Procedure Name Priority Date/Time Associated Diagnosis Comments CT ANGIO CHEST STAT 12/20/2022 8:54 AM EDT ACUTE HEPATITIS PANEL Routine 12/14/2022 5:35 PM EDT HIV 1/2 ANTIBODY/ANTIGEN SCREEN WITH REFLEX TO HIV I/II DIFFERENTIATION Routine 12/14/2022 5:35 PM EDT HEMOGLOBIN A1C Add-On 12/10/2022 3:43 AM EDT from Last 3 Months or Most Recently Relevant to Health Maintenance Results * CT Angio Chest (12/20/2022 8:54 AM EDT) Anatomical Region Laterality Modality Chest Computed Tomogra phy Impressions 12/20/2022 11:01 AM EDT 1. No acute vascular pathology within the chest abdomen pelvis. Surgical changes from left [id number] amputation with extensive soft tissue edema extending along lateral aspect of the thigh with no drainable fluid collection. Chronic distal SFA stent occlusion and marked superficial venous collateralization. Multilevel, mostly noncalcified, plaques resulting in mild to moderate stenosis throughout visualized left external iliac, proximal left SFA, and right common femoral arteries as described above. 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 2. No acute findings in the chest. Significant left diaphragmatic eventration with associated left lower lung atelectasis. Peripheral right lung groundglass opacity likely infectious/inflammatory in nature. 3. No acute findings in the abdomen or pelvis. CRITICAL RESULT: No. COMMUNICATION: Per this written report. By electronically signing this report, I, the attending physician, attest that I have personally reviewed the images/data for the above examination(s) and agree with the final edited report. Drafted by Jacky Lackey MD on 12/20/2022 9:31 AM Final report signed by Thanh Landaverde MD on 12/20/2022 11:01 AM Narrative 12/20/2022 11:01 AM EDT CLINICAL INDICATION: Claudication or leg ischemia TECHNIQUE: Imaging of the chest abdomen and pelvis was performed, from thoracic inlet through bilateral lower extremities, using spiral technique, following administration of IV contrast, Omnipaque 350, 150 mL according to the CTA thoracic aorta/chest and CTA Abdomen/Pelvis with Runoff protocol. Reformatted images in the coronal, sagittal, and oblique planes were generated from the axial data set to facilitate diagnostic accuracy. In addition, 3D images were created and reviewed. Total DLP (Dose-Length Product): 4402 mGy*cm. Please note: The reported value represents the total of one or more individual components during the CT acquisition on this date and at this time, and as such, the same value may appear in more than one CT report depending on the interpreting/reporting physicians. COMPARISON: CT angiogram of the chest abdomen pelvis December 09, 2022 FINDINGS: Chest: Aorta/Vessels: No acute thoracic aortic pathology. No periaortic hematoma. No filling defect within the pulmonary arteries to suggest pulmonary embolism. Pleural/Pericardial Space: No pneumothorax. No pleural effusions. No pericardial effusion. Lymph Nodes: No lymphadenopathy within the chest. Lungs: Central airways are patent. Significant elevated left hemidiaphragm with associated marked basilar atelectasis. Mild right basal atelectasis. Discoid atelectasis in the left upper lobe. No consolidative airspace is identified. Peripheral right upper lobe ground glass opacities likely infectious or post inflammatory in nature (series 7 image 68) Mediastinum: Otherwise unremarkable. Chest wall: No chest wall hematoma or contusion. Bones: No acute fracture within the chest. Abdomen: Vessels: The abdominal aorta and its major branches are unremarkable. Liver/Gallbladder/Biliary System: The liver demonstrates homogeneous enhancement. Normal Gallbladder. No intra- or extra-hepatic biliary ductal dilatation. Spleen: The spleen enhances homogeneously. Pancreas: The pancreas enhances homogeneously. Adrenals: The adrenals are morphologically unremarkable. Kidneys: The kidneys demonstrate symmetric nephrogram and excretion. Tiny areas of cortical scarring noted in both kidneys. No renal or ureteral calculi. No hydronephrosis. Bowel/Mesentery: Distended stomach and duodenum with no definite findings of bowel obstruction. No suspicious bowel wall thickening or mesenteric abnormalities seen. Scattered sigmoid diverticula with no significant abnormality changes of diverticulitis. Lymph Nodes: No lymphadenopathy within the abdomen or pelvis. Fluid Survey: No free fluid in the abdomen. No free fluid in the pelvis. Pelvis: The pelvic viscera are unremarkable. Body Wall: Left chest and abdominal wall subcutaneous edema. Bones: No acute fracture within the abdomen or pelvis. Lower Extremities: Right Lower Extremity: Right Common Iliac Artery: Patent. Right External Iliac Artery: Patent. Right Common Femoral Artery: Partially calcified atherosclerotic plaque resulting in mild to moderate stenosis. Focal dissection noted arising from the posterior aspect of the artery (series 4, image 226). Right Deep Femoral Artery: Patent. Right Superficial Femoral Artery: Patent. Right Popliteal Artery: Patent. Right Anterior Tibial Artery: Patent. Right Tibioperoneal Trunk: Patent. Right Posterior Tibial Artery: Patent. Right Peroneal Artery: Patent. Right Non-Vascular: Non-contributory. Left Lower Extremity: Left Common Iliac Artery: Patent. Left External Iliac Artery: Concentric nonocclusive thrombus in proximal left external iliac artery resulting in moderate stenosis (series 4 image 207). Left Common Femoral Artery: Patent Left Deep Femoral Artery: Patent Left Superficial Femoral Artery: PaSmall eccentric filling defect likely representing a noncalcified plaque with minimal to mild stenosis of the left common femoral artery (series 4 image 268) . Occluded vascular stent throughout distal SFA and extending throughout proximal popliteal vessel. There is tortuous superficial venous collateralization suggestive of underlying chronic venous insufficiency. Left Non-Vascular: There are surgical changes from below knee amputation and soft tissue debridement. Soft tissue edema extending through lateral aspect of the left thigh with no drainable fluid collection. Small suprapatellar effusion. Some ill-defined fluid likely postsurgical nature along resection margin. Procedure Note Thanh Landaverde MD - 12/20/2022 CLINICAL INDICATION: Claudication or leg ischemia TECHNIQUE: Imaging of the chest abdomen and pelvis was performed, from thoracic inletthrough bilateral lower extremities, using spiral technique, followingadministration of IV contrast, Omnipaque 350, 150 mL according to the CTAthoracic aorta/chest and CTA Abdomen/Pelvis with Runoff protocol.Reformatted images in the coronal, sagittal, and oblique planes weregenerated from the axial data set to facilitate diagnostic accuracy. Inaddition, 3D images were created and reviewed. Total DLP (Dose-Length Product): 4402 mGy*cm. Please note: The reportedvalue represents the total of one or more individual components during theCT acquisition on this date and at this time, and as such, the same valuemay appear in more than one CT report depending on theinterpreting/reporting physicians. COMPARISON: CT angiogram of the chest abdomen pelvis December 09, 2022 FINDINGS: Chest: Aorta/Vessels: No acute thoracic aortic pathology. No periaortic hematoma.No filling defect within the pulmonary arteries to suggest pulmonaryembolism. Pleural/Pericardial Space: No pneumothorax. No pleural effusions. Nopericardial effusion. Lymph Nodes: No lymphadenopathy within the chest. Lungs: Central airways are patent. Significant elevated left hemidiaphragmwith associated marked basilar atelectasis. Mild right basal atelectasis.Discoid atelectasis in the left upper lobe. No consolidative airspace isidentified. Peripheral right upper lobe ground glass opacities likelyinfectious or post inflammatory in nature (series 7 image 68) Mediastinum: Otherwise unremarkable. Chest wall: No chest wall hematoma or contusion. Bones: No acute fracture within the chest. Abdomen: Vessels: The abdominal aorta and its major branches are unremarkable. Liver/Gallbladder/Biliary System: The liver demonstrates homogeneousenhancement. Normal Gallbladder. No intra- or extra-hepatic biliaryductal dilatation. Spleen: The spleen enhances homogeneously. Pancreas: The pancreas enhances homogeneously. Adrenals: The adrenals are morphologically unremarkable. Kidneys: The kidneys demonstrate symmetric nephrogram and excretion. Tinyareas of cortical scarring noted in both kidneys. No renal or ureteralcalculi. No hydronephrosis. Bowel/Mesentery: Distended stomach and duodenum with no definite findingsof bowel obstruction. No suspicious bowel wall thickening or mesentericabnormalities seen. Scattered sigmoid diverticula with no significantabnormality changes of diverticulitis. Lymph Nodes: No lymphadenopathy within the abdomen or pelvis. Fluid Survey: No free fluid in the abdomen. No free fluid in the pelvis. Pelvis: The pelvic viscera are unremarkable. Body Wall: Left chest and abdominal wall subcutaneous edema. Bones: No acute fracture within the abdomen or pelvis. Lower Extremities: Right Lower Extremity: Right Common Iliac Artery: Patent. Right External Iliac Artery: Patent. Right Common Femoral Artery: Partially calcified atherosclerotic plaqueresulting in mild to moderate stenosis. Focal dissection noted arisingfrom the posterior aspect of the artery (series 4, image 226). Right Deep Femoral Artery: Patent. Right Superficial Femoral Artery: Patent. Right Popliteal Artery: Patent. Right Anterior Tibial Artery: Patent. Right Tibioperoneal Trunk: Patent. Right Posterior Tibial Artery: Patent. Right Peroneal Artery: Patent. Right Non-Vascular: Non-contributory. Left Lower Extremity: Left Common Iliac Artery: Patent. Left External Iliac Artery: Concentric nonocclusive thrombus in proximalleft external iliac artery resulting in moderate stenosis (series 4 [id number]). Left Common Femoral Artery: Patent Left Deep Femoral Artery: Patent Left Superficial Femoral Artery: PaSmall eccentric filling defect likelyrepresenting a noncalcified plaque with minimal to mild stenosis of theleft common femoral artery (series 4 image 268) . Occluded vascular stentthroughout distal SFA and extending throughout proximal popliteal vessel. There is tortuous superficial venous collateralization suggestive ofunderlying chronic venous insufficiency. Left Non-Vascular: There are surgical changes from below knee amputationand soft tissue debridement. Soft tissue edema extending through lateralaspect of the left thigh with no drainable fluid collection. Smallsuprapatellar effusion. Some ill-defined fluid likely postsurgical naturealong resection margin. IMPRESSION: 1. No acute vascular pathology within the chest abdomen pelvis. Surgicalchanges from left [id number] amputation with extensive soft tissueedema extending along lateral aspect of the thigh with no drainable fluidcollection. Chronic distal SFA stent occlusion and marked superficialvenous collateralization. Multilevel, mostly noncalcified, plaquesresulting in mild to moderate stenosis throughout visualized left externaliliac, proximal left SFA, and right common femoral arteries as describedabove. 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 2. No acute findings in the chest. Significant left diaphragmaticeventration with associated left lower lung atelectasis. Peripheral rightlung groundglass opacity likely infectious/inflammatory in nature. 3. No acute findings in the abdomen or pelvis. CRITICAL RESULT: No. COMMUNICATION: Per this written report. By electronically signing this report, I, the attending physician, attestthat I have personally reviewed the images/data for the aboveexamination(s) and agree with the final edited report. Drafted by Jacky Lackey MD on 12/20/2022 9:31 AM Final report signed by Thanh Landaverde MD on 12/20/2022 11:01 AM Antonia Wells ANALYTIC PROGRAMMER IMG CT PROCEDURES Final Result * HIV 1 & 2 Antibody/Antigen Screen (12/14/2022 5:35 PM EDT) [facility] HIV 1 & 2 Antibody/Antigen Screen Non Reactive Non Reactive 12/14/2022 7:20 PM EDT [facility] Comment:Screening for HIV 1 & 2 antibodies, and P24 antigen is NONREACTIVE. No confirmatory testing is required. Blood Arterial blood specimen / Unknown Arterial Line / Unknown 12/14/2022 5:35 PM EDT 12/14/2022 6:36 PM EDT Shreyas Reyez MD LAB BLOOD ORDERABLES Final Res ult [facility] [address] [place] [id number] * Hepatitis panel, acute (12/14/2022 5:35 PM EDT) Pathologist [facility] Hepatitis B Surf Antigen Negative Negative 12/14/2022 8:01 PM EDT [facility] Hepatitis C Antibody Negative Negative 12/14/2022 8:01 PM EDT [facility] Hepatitis A Antibody IgM Negative Negative 12/14/2022 8:01 PM EDT [facility] Hepatitis B Core Antibody IgM Negative Negative 12/14/2022 8:01 PM EDT [facility] Blood Arterial blood specimen / Unknown Arterial Line / Unknown 12/14/2022 5:35 PM EDT 12/14/2022 6:36 PM EDT Shreyas Reyez MD LAB BLOOD ORDERABLES Final Res ult Performing Organization Address [facility] de Phone Number [facility] [address] [place] [address] * (ABNORMAL) Hemoglobin A1c (12/10/2022 3:43 AM EDT) Hemoglobin A1c 7.6(H) <5.7 % 12/10/2022 6:07 AM EDT [facility] Blood Venous blood specimen / Unknown Venipuncture / Unknown 12/10/2022 3:43 AM EDT 12/10/2022 4:05 AM EDT Narrative [facility] - 12/10/2022 6:07 AM EDT HA1C Interpretive Data: Diagnosis of Diabetes: Diabetic > or = 6.5% Pre-diabetic 5.7 to 6.4% Non-diabetic < or = 5.6% Glycemic Targets for Type I and Type II Diabetics: Non- Adults <7.0% Adults <6.0% Children and Adolescents <7.5% Source: [place] [employer]. Standards of medical care in diabetes,2017. Diabetes Care.2017:40 (suppl 1):S1-S135. HbA1c assay performed by an ion-exchange chromatography method that is certified traceable to the DCCT. Marilyn Monge APRN LAB BLOOD ORDERABLES Final R esult Performing Organization Address [facility] de Phone Number [facility] [address] [place] [address] from Last 3 Months or Most Recently Relevant to Health Maintenance Insurance ANTH Advance Directives * Full Code (Latest Code Status on File) Date Activated Date Inactivated Comments 12/09/2022 1:26 PM 01/07/2023 4:00 PM Question Answer Comments Patient has decision-making capacity? Yes Care Teams Lumber Estimator Relationship Specialty Start Date End Date Armando Polanco MD [address] [place] [address] PCP - General 10/15/22
[2025-01-12 10:22] LABS: Hepatitis B Surface Antigen Negative (Negative)
[2025-01-21 05:08] LABS: Testosterone, Total, LC/MS 156 ng/dL (.)
== END 2025-01-10 23:59 | disposition home or self-care (01) ==
LOC: LAB 01-11 08:21
PROVIDERS: PCP Family Medicine; Visit Provider Family Medicine
DX: E03.9 Hypothyroidism, unspecified (principal); E11.9 Type 2 diabetes mellitus without complications; E78.2 Mixed hyperlipidemia; Z11.59 Encounter for screening for other viral diseases
CPT/HCPCS: 80053; 80061; 82043; 82306; 82570; 84403; 84443; 85025; 86803; 87340; 87389; G0103